=== PATIENT | male | born 1995 | race Caucasian/White ===

== ENCOUNTER 2016-07-12 12:19 | Emergency (ER) | payer BC ==
[~2016-07-12] VITALS: Ht 175.3 cm; Wt 68.0 kg
[2016-07-12 12:31] VITALS: TEMP 37; Ht 175.3 cm; Wt 68.0 kg
[2016-07-12] MEDS ORDERED: LACT1CAP3 PO (12:52)
[2016-07-12] MEDS ORDERED: IBUP-1050 PO (12:52)
[2016-07-12] MEDS ORDERED: LITH1TAB PO (12:52)
[2016-07-12] MEDS ORDERED: CLC/300 PO (12:52)
[2016-07-12] MEDS ORDERED: PSEU30TA20 PO (12:52)
[2016-07-12] MEDS ORDERED: PRED20TA PO (12:52)
[2016-07-12] MEDS ORDERED: SODIUM CHLORIDE 0.9% 1000ML 1,000 ML IV STA (12:59)
[2016-07-12] MEDS ORDERED: DEXAMETHASONE SOD INJ 10 MG/ML VIAL IV ONE (13:00)
[2016-07-12 13:27] LABS: HEMATOCRIT 41.4 % (42-52); MEAN CELL VOLUME 85.4 fL (80-100); MEAN CORPUSCULAR HEMOGLOBIN 29.9 pg (25-34); MEAN PLATELET VOLUME 10.7 fL (7.4-10.4); PLATELET COUNT 249 K/uL (130-400); RED BLOOD COUNT 4.85 M/uL (4.7-6.1); WHITE BLOOD COUNT 10.95 K/uL (4.8-10.8)
[2016-07-12 13:49] LABS: ALT/SGPT 26 U/L (12-78); BLOOD UREA NITROGEN 16 mg/dl (7-18); BUN/CREATININE RATIO 16.3 (10-20); CALCIUM 9.6 mg/dl (8.5-10.1); CARBON DIOXIDE 26 mmol/L (21-32); CHLORIDE 104 mmol/L (98-107); GLUCOSE 104 mg/dl (70-99); POTASSIUM 4.7 mmol/L (3.5-5.1); SODIUM 138 mmol/L (136-145)
[2016-07-12 13:52] LABS: ALKALINE PHOSPHATASE 57 U/L (45-117); AST/SGOT 17 U/L (15-37)
[2016-07-12 14:09] LABS: COMPLETE YES; LYMPHOCYTE % 2.7 %; NEUTROPHILS % 75.2 %; VARIANT LYM ABS # 1.94 K/uL; VARIANT LYMPHOCYTE % 17.7 %
--- NOTE | 2016-07-12 14:28 | EMERGENCY ROOM VISIT NOTE ---
History Report prepared by Gregoria: Sanam Alvarado Under the Supervision of: Dr. Alison Jordan M.D. First contact with patient: 12:56 Chief Complaint: ILLNESS Stated Complaint: THROAT SWELLING, FEVER, CONGESTION/MONO History of Present Illness The patient is a 21 year old male who presents to the Emergency Room with complaints of worsening illness that started one week ago. He is experiencing a fever, sinus congestion, and throat swelling. He states that swallowing is getting more difficult so he came into the ED. The patient was seen at [facility] 4 days ago and started on antibiotics for suspected tonsillitis. His strep test was negative. His symptoms did not get any better so he went back to [facility] yesterday. They tested him for mono and started him on steroids. The steroids helped relieve some of the external throat swelling but it was still difficult for him to swallow. He is on a steroid taper and took 3 tabs yesterday morning, 3 tabs last night, and 3 tabs this morning. Source of History: patient Onset: one week ago Position: other (generalized) Quality: other (illness) Timing: worsening Associated Symptoms: + fevers Note: sinus congestion, throat swelling Review of Systems See HPI for pertinent positives & negatives. A total of 10 systems reviewed and were otherwise negative. 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 Current/Historical Medications Scheduled Clindamycin HCl (Clindamycin HCl), 300 MG PO TID Ibuprofen (Advil), 200-600 MG PO Q4H Lactobacillus Rhamnosus (GG) (Culturelle), 1 CAP PO TID Helix Carbonate Ext Rel (Lithobid Ext Rel), 450 MG PO BID Prednisone (Prednisone), 20 MG PO DIRECTED Pseudoephedrine (Sudafed), 30 MG PO Q6 Allergies Coded Allergies: Penicillins (Verified Allergy, Intermediate, Hives, swelling, 07/12/16) Sulfa Antibiotics (Unverified Allergy, Unknown, HIVES, 07/12/16) Physical Exam Vital Signs Date Time Temp Pulse Resp B/P Pulse Ox O2 Delivery O2 Flow Rate FiO2 07/12/16 14:58 61 18 131/81 97 Room Air 07/12/16 12:31 37.0 101 20 126/74 98 Room Air Physical Exam Vital signs reviewed. General: Well-appearing male, in no significant distress. HEENT: No scleral icterus, PERRLA, neck supple. 3+ tonsillar hypertrophy, "hot potato" voice, tonsillar exudates bilaterally. TMs clear bilaterally. Atraumatic. Cardiovascular: Regular rate and rhythm, no extra sounds. Pulmonary: Clear to auscultation bilaterally, normal work of breathing. Abdomen: Soft, nontender, nondistended, positive bowel sounds. Musculoskeletal: Atraumatic, no peripheral edema. Neurologic: Patient awake alert and oriented x 3, full strength in all 4 extremities. Cranial nerves 2 through 12 grossly intact. Skin: Warm, dry, no rash Medical Decision & Procedures Laboratory Results 07/12/16 13:15 Red Blood Count 4.85, Mean Corpuscular Volume 85.4, Mean Corpuscular Hemoglobin 29.9, Mean Corpuscular Hemoglobin Concent 35.0, Mean Platelet Volume 10.7 07/12/16 13:15 Test 07/12/16 13:15 White Blood Count 10.95 K/uL (4.8-10.8) Red Blood Count 4.85 M/uL (4.7-6.1) Hemoglobin 14.5 g/dL (14.0-18.0) Hematocrit 41.4 % (42-52) Mean Corpuscular Volume 85.4 fL (80-100) Mean Corpuscular Hemoglobin 29.9 pg (25-34) Mean Corpuscular Hemoglobin Concent 35.0 g/dl (32-36) Platelet Count 249 K/uL (130-400) Mean Platelet Volume 10.7 fL (7.4-10.4) RDW Standard Deviation 40.7 fL (36.4-46.3) RDW Coefficient of Variation 13.0 % (11.5-14.5) Neutrophils % (Manual) 75.2 % Lymphocytes % (Manual) 2.7 % Variant Lymphocytes % (manual) 17.7 % Monocytes % (Manual) 4.4 % Neutrophils # (Manual) 8.23 K/uL (1.4-6.5) Total Absolute Neutrophils 8.23 K/uL (1.4-6.5) Lymphocytes # (Manual) 0.30 K/uL (1.2-3.4) Absolute Variant Lymphocytes 1.94 K/uL Total Absolute Lymphocytes 2.23 K/uL (1.2-3.4) Monocytes # (Manual) 0.48 K/uL (0.11-0.59) Red Blood Cell Morphology Unremarkable Anion Gap 8.0 mmol/L (3-11) Est Creatinine Clear Calc Drug Dose 110.5 ml/min Estimated GFR () 122.4 Estimated GFR (Non- 105.6 BUN/Creatinine Ratio 16.3 (10-20) Calcium Level 9.6 mg/dl (8.5-10.1) Total Bilirubin 0.4 mg/dl (0.2-1) Direct Bilirubin < 0.1 mg/dl (0-0.2) Aspartate Amino Transf (AST/SGOT) 17 U/L (15-37) Alanine Aminotransferase (ALT/SGPT) 26 U/L (12-78) Alkaline Phosphatase 57 U/L (45-117) Total Protein 8.1 gm/dl (6.4-8.2) Albumin 3.8 gm/dl (3.4-5.0) Monoscreen NEG (NEG) Laboratory results per my review. Medications Administered Medications (Trade) Dose Ordered Sig/Marielle Route Start Time Stop Time Status Last Admin Dose Admin Sodium Chloride (Nss 1000ml) 1,000 ml @ 999 mls/hr Q1H1M STAT IV 07/12/16 12:59 07/12/16 13:59 DC 07/12/16 13:31 999 MLS/HR Dexamethasone Sodium Phosphate (Decadron Inj) 10 mg NOW ONCE IV 07/12/16 13:00 07/12/16 13:01 DC 07/12/16 13:31 10 MG ED Course 1257: Past medical records reviewed. The patient was evaluated in room B5. A complete history and physical examination was performed. 1259: Ordered Sodium Chloride 1000 ml @ 999 mls/hr IV 1300: Ordered Decadron Inj 10 mg IV 1446: Upon reevaluation, the patient appeared to have improvement of his symptoms. I discussed findings with him. He verbalized agreement of the treatment plan. He was discharged home. Medical Decision The patient is a 21 year old male who presents to the Emergency Room with complaints of worsening illness that started one week ago. Differentials include viral syndrome, tonsillitis, streptococcal pharyngitis, mononucleosis, peritonsillar abscess, retropharyngeal abscess, otitis, pneumonia, influenza. This patient was evaluated and appeared to be in no significant distress. IV access was obtained and laboratory work was drawn. Patient was hydrated with normal saline solution. He is currently on clindamycin and prednisone for [facility]. A repeat Monospot was performed and is negative. EBV titers are pending. Strep swab is negative. Formal cultures are pending. The patient will continue his clindamycin as scheduled. He was given IV dexamethasone in the emergency department. He was discharged to continue his medications as prescribed and will follow-up with [facility] this week. He will return to the ER for worsening of symptoms or any medical concerns. Impression Primary Impression: Tonsillitis with exudate Scribe Attestation The scribe's documentation has been prepared under my direction and personally reviewed by me in its entirety. I confirm that the note above accurately reflects all work, treatment, procedures, and medical decision making performed by me. Departure Information Dispostion Home / Self-Care Referrals No Doctor, Assigned (PCP) Forms HOME CARE DOCUMENTATION FORM, IMPORTANT VISIT INFORMATION, WORK / SCHOOL INSTRUCTIONS Patient Instructions My [facility] Additional Instructions Diagnosis: Tonsillitis Continue clindamycin as prescribed. Continue prednisone as prescribed. Follow-up with [facility] in one week for reevaluation. Drink plenty of clear fluids. Return to the emergency department for worsening of symptoms or any medical concerns.
[2016-07-12 14:58] VITALS: BP 131/81; PULSE 61; O2SAT 97
[2016-07-16 15:17] LABS: EBV EARLY ANTIGEN AB <0.91 INDEX; EPSTEIN BARR VIR CAPSID IGG <0.91 INDEX
[2016-07-18] MEDS ORDERED: CEFD250S3 PO (08:02)
[2016-07-18] MEDS ORDERED: SALI0.6510 (08:02)
[2016-07-18] MEDS ORDERED: AFRIN (08:02)
[2016-07-18] MEDS ORDERED: PRED20TA PO (08:02)
== END 2016-07-12 14:58 | disposition home or self-care (01) ==
LOC: C.EDB 12:21
DX: J03.90 Acute tonsillitis, unspecified (principal); F31.9 Bipolar disorder, unspecified; Z79.899 Other long term (current) drug therapy; Z88.0 Allergy status to penicillin; Z88.2 Allergy status to sulfonamides; Z82.49 Family history of ischemic heart disease and other diseases of the circulatory system

== ENCOUNTER 2016-07-13 04:14 | Inpatient (IN) | payer BC ==
[2016-07-13] VITALS (11 sets, daily range): BP systolic 116–134; BP diastolic 62–90; PULSE 65–100; TEMP 36.8–37.4; O2SAT 94–99; Ht 175.3 cm; Wt 64.1 kg
[~2016-07-13] VITALS: Ht 175.3 cm; Wt 64.1 kg
[~2016-07-13 04:14] MED LIST: CLC/300 PO; IBUP-1050 PO; LACT1CAP3 PO; LITH1TAB PO; PRED20TA PO; PSEU30TA20 PO
[2016-07-13] MEDS ORDERED: KETOROLAC TROMETHAMINE 30 MG/ML VIAL IV STA (04:40)
[2016-07-13] MEDS ORDERED: SODIUM CHLORIDE 0.9% 1000ML 1,000 ML IV STA (04:40)
[2016-07-13] MEDS ORDERED: DEXAMETHASONE SOD INJ 10 MG/ML VIAL IV ONE (04:45)
[2016-07-13] MEDS ORDERED: CLINDAMYCIN 600 MG/54 ML D5W IV ONE (04:45)
--- NOTE | 2016-07-13 05:04 | EMERGENCY ROOM VISIT NOTE ---
History First contact with patient: 04:24 Chief Complaint: SORETHROAT Stated Complaint: SORE THOAT History of Present Illness The patient is a 21 year old male who presents to the Emergency Department by private vehicle for evaluation of his worsening sore throat. The patient had been seen in this facility yesterday and evaluated for possible mono. He was diagnosed with exudative tonsillitis. He was placed on steroids as well as clindamycin. He is taking his medication without relief. He reports worsening swelling to his throat. He is to the point that he can barely swallow his own spit. He reports this is what prompted his visit tonight. He reports low- grade fevers. He has been using ibuprofen with minimal relief of pain. He rates his current discomfort as a 7/10. He denies any posterior neck stiffness , nausea, vomiting, chest pain, palpitations, hematuria, or dysuria. He complains of mild headaches as well as some lightheadedness with changes in position. Review of Systems A complete 10-point Review of Systems was discussed with the patient, with pertinent positives and negatives listed in the History of Present Illness. All remaining Review of Systems questions can be considered negative unless otherwise specified. 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 Current/Historical Medications Scheduled Clindamycin HCl (Clindamycin HCl), 300 MG PO TID Ibuprofen (Advil), 200-600 MG PO Q4H Lactobacillus Rhamnosus (GG) (Culturelle), 1 CAP PO TID [place] Carbonate Ext Rel (Lithobid Ext Rel), 450 MG PO BID Prednisone (Prednisone), 20 MG PO DIRECTED Scheduled PRN Pseudoephedrine (Sudafed), 30 MG PO Q6 PRN for Nasal Congestion Allergies Coded Allergies: Penicillins (Verified Allergy, Intermediate, Hives, swelling, 07/13/16) Sulfa Antibiotics (Unverified Allergy, Unknown, HIVES, 07/13/16) Physical Exam Vital Signs Date Time Temp Pulse Resp B/P Pulse Ox O2 Delivery O2 Flow Rate FiO2 07/13/16 08:04 70 18 122/71 95 Room Air 07/13/16 07:46 94 Room Air 07/13/16 06:41 63 18 122/71 94 Room Air 07/13/16 05:01 98 Room Air 07/13/16 04:18 37.1 89 20 137/89 97 Room Air 07/13/16 04:18 94 Room Air Pain Rating (0-10): 7 Physical Exam VITAL SIGNS - Vital signs and nursing notes were reviewed. GENERAL - Well nourished, well developed 21-year-old male in no acute distress. Pt communicates well with provider and answers questions appropriately. SKIN - Without rash. HEAD - NC/AT with no obvious deformities. EYES - PERRL with EOMI bilaterally. Sclera without injection. Palpebral conjunctiva pink and moist. EARS - No deformities of external structures noted on gross examination bilaterally. No pain elicited with palpation of the tragus bilaterally. External auditory canals without discharge or otorrhea. Tympanic membranes pearly sierra without retraction or bulging. No fluid or purulent material visualized behind the TM. Handle of malleus, umbo, cone of light, pars tensa/ flaccid all easily visualized. NOSE - Midline and without cyanosis. No purulent drainage noted. Nasal mucosa without mucus discharge. MOUTH/OROPHARYNX - Without perioral cyanosis. Buccal mucosa pink and moist and without leukoplakia. Tongue midline with no palate deviation. Moderate tonsillar hypertrophy appreciated bilaterally. Nearly kissing tonsils. No trismus. Moderate erythema with whitish exudates noted bilaterally. Good dentition noted. Muffled voice. NECK - Neck with FROM. Supple to palpation. Moderate anterior cervical lymphadenopathy noted. No nuchal rigidity. LUNGS - Chest wall symmetric without accessory muscle use, intercostals retractions, or central cyanosis. Normal vesicular breath sounds CTA B/L. No wheezes, rales, or rhonchi appreciated. CARDIAC - RRR with S1/S2. No murmur, rubs, or gallops appreciated. ABDOMEN - Abdominal contour flat and without pulsations or visible masses. BS normoactive all four quadrants. No tenderness, palpable masses, hepatosplenomegaly, or ascites noted. Medical Decision & Procedures Laboratory Results 07/13/16 04:55 Red Blood Count 4.44, Mean Corpuscular Volume 85.6, Mean Corpuscular Hemoglobin 30.0, Mean Corpuscular Hemoglobin Concent 35.0, Mean Platelet Volume 10.4 07/13/16 04:55 Test 07/13/16 04:55 07/13/16 07:12 White Blood Count 11.02 K/uL (4.8-10.8) Red Blood Count 4.44 M/uL (4.7-6.1) Hemoglobin 13.3 g/dL (14.0-18.0) Hematocrit 38.0 % (42-52) Mean Corpuscular Volume 85.6 fL (80-100) Mean Corpuscular Hemoglobin 30.0 pg (25-34) Mean Corpuscular Hemoglobin Concent 35.0 g/dl (32-36) Platelet Count 245 K/uL (130-400) Mean Platelet Volume 10.4 fL (7.4-10.4) RDW Standard Deviation 41.2 fL (36.4-46.3) RDW Coefficient of Variation 13.2 % (11.5-14.5) Neutrophils % (Manual) 62.2 % Lymphocytes % (Manual) 9.0 % Variant Lymphocytes % (manual) 18.9 % Monocytes % (Manual) 9.9 % Neutrophils # (Manual) 6.85 K/uL (1.4-6.5) Total Absolute Neutrophils 6.85 K/uL (1.4-6.5) Lymphocytes # (Manual) 0.99 K/uL (1.2-3.4) Absolute Variant Lymphocytes 2.08 K/uL Total Absolute Lymphocytes 3.07 K/uL (1.2-3.4) Monocytes # (Manual) 1.09 K/uL (0.11-0.59) Red Blood Cell Morphology Unremarkable Erythrocyte Sedimentation Rate 32 mm/hr (0-14) Anion Gap 9.0 mmol/L (3-11) Est Creatinine Clear Calc Drug Dose 113.6 ml/min Estimated GFR () 125.4 Estimated GFR (Non- 108.2 BUN/Creatinine Ratio 17.0 (10-20) Calcium Level 9.0 mg/dl (8.5-10.1) Magnesium Level 2.4 mg/dl (1.8-2.4) Total Bilirubin 0.3 mg/dl (0.2-1) Aspartate Amino Transf (AST/SGOT) 11 U/L (15-37) Alanine Aminotransferase (ALT/SGPT) 25 U/L (12-78) Alkaline Phosphatase 54 U/L (45-117) C-Reactive Protein 1.83 mg/dl (0-0.29) Total Protein 7.5 gm/dl (6.4-8.2) Albumin 3.5 gm/dl (3.4-5.0) Globulin 4.0 gm/dl (2.5-4.0) Albumin/Globulin Ratio 0.9 (0.9-2) Lipase 83 U/L (73-393) Monoscreen NEG (NEG) Urine Color DK YELLOW Urine Appearance CLEAR (CLEAR) Urine pH 5.5 (4.5-7.5) Urine Specific [place] 1.037 (1.000-1.030) Urine Protein TRACE (NEG) Urine Glucose (UA) NEG (NEG) Urine Ketones 1+ (NEG) Urine Occult Blood NEG (NEG) Urine Nitrite NEG (NEG) Urine Bilirubin NEG (NEG) Urine Urobilinogen NEG (NEG) Urine Leukocyte Esterase NEG (NEG) Urine WBC (Auto) 1-5 /hpf (0-5) Urine RBC (Auto) 0-4 /hpf (0-4) Urine Hyaline Casts (Auto) 1-5 /lpf (0-5) Urine Epithelial Cells (Auto) >30 /lpf (0-5) Urine Bacteria (Auto) NEG (NEG) Medications Administered Medications (Trade) Dose Ordered Sig/Marielle Route Start Time Stop Time Status Last Admin Dose Admin Sodium Chloride (Nss 1000ml) 1,000 ml @ 999 mls/hr Q1H1M STAT IV 07/13/16 04:40 07/13/16 05:40 DC 07/13/16 04:57 999 MLS/HR Ketorolac Tromethamine (Toradol Inj) 30 mg NOW STAT IV 07/13/16 04:40 07/13/16 04:43 DC 07/13/16 04:57 30 MG Dexamethasone Sodium Phosphate 10 mg 10 mg NOW ONCE IV 07/13/16 04:45 07/13/16 04:46 DC 07/13/16 04:56 10 MG Clindamycin Phosphate/Dextrose (Cleocin Iv/ Dextrose Add-[place] 50ML) 54 ml @ 108 mls/hr NOW STAT IV 07/13/16 05:21 07/13/16 05:50 DC 07/13/16 05:27 108 MLS/HR Procedure The patient's pulse oximetry was monitored throughout the entire stay. Any abnormalities or aberrancies were addressed appropriately. ED Course Patient was seen and evaluated by myself. Previous emergency department visit note was reviewed. Labs were drawn, saline lock in place. The patient was hydrated with a 1000 mL normal saline bolus. He was treated with 30 mg Toradol , 10 mg Decadron, and 600 mg clindamycin intravenously. Laboratory results demonstrate a mild leukocytosis. The patient is not anemic. There are no significant electrolyte abnormalities otherwise. Monospot was found to be negative. The patient was monitored in the emergency department. He reports feeling somewhat better at this time. Regardless, the patient has persistent difficulty with swallowing secondary to pain. He is able to tolerate his own secretions at this point. The patient will be admitted to the [facility] program for continued evaluation and management. The patient was admitted in stable condition. Medical Decision Given the patient's presentation and exam findings, I did elect to perform the above-mentioned workup. The patient presents today with persistent bilateral exudative tonsillitis with near kissing tonsils. He does have a mild muffled voice. His exam is not consistent with a peritonsillar abscess or retropharyngeal abscess at this point. I do not feel that imaging studies are necessary at this point. Regardless, the patient has swelling to the point that he is having issues with swallowing which has resolved and mild dehydration per his urine. His symptoms did improve with Toradol and Decadron intravenously, however I do feel that the patient warrants inpatient management for IV fluid hydration and continued management. The patient was admitted to the hospitalist program in stable condition. In the evaluation and treatment of this patient, the following differential diagnoses were considered: Peritonsillar abscess, retropharyngeal abscess, mono , strep, meningitis, encephalitis, amongst others. Impression Primary Impression: Exudative tonsillitis Additional Impressions: Pain with swallowing Dehydration Departure Information Dispostion Admitted as an inpatient Condition [facility] (PCP) Patient Instructions My [facility] Problem Qualifiers
[2016-07-13 05:10] LABS: MEAN CELL VOLUME 85.6 fL (80-100); MEAN PLATELET VOLUME 10.4 fL (7.4-10.4); PLATELET COUNT 245 K/uL (130-400); RED BLOOD COUNT 4.44 M/uL (4.7-6.1); WHITE BLOOD COUNT 11.02 K/uL (4.8-10.8)
[2016-07-13] MEDS ORDERED: CLINDAMYCIN IV 600 MG in DEXTROSE 5% ADD-VANTAGE 50ML 50 ML IV STA (05:21)
[2016-07-13 05:29] LABS: COMPLETE YES; LYMPH ABS # 0.99 K/uL (1.2-3.4); NEUTROPHILS % 62.2 %; VARIANT LYM ABS # 2.08 K/uL; VARIANT LYMPHOCYTE % 18.9 %
[2016-07-13 05:30] LABS: CREATININE 0.98 mg/dl (0.60-1.40); MAGNESIUM 2.4 mg/dl (1.8-2.4); POTASSIUM 4.1 mmol/L (3.5-5.1)
[2016-07-13 05:33] LABS: ALB/GLOB RATIO 0.9 (0.9-2); C-REACTIVE PROTEIN 1.83 mg/dl (0-0.29)
[2016-07-13] MEDS: SODIUM CHLORIDE 0.9% 1000ML 1,000 ML IV SCH ×2 (07:36→20:22)
[2016-07-13 07:45] LABS: URINE APPEARANCE CLEAR (CLEAR); URINE BILIRUBIN NEG (NEG); URINE COLOR DK YELLOW; URINE EPITHELIAL CELL AUTO >30 /lpf (0-5); URINE NITRITE NEG (NEG); URINE PH 5.5 (4.5-7.5); URINE SPECIFIC GRAVITY 1.037 (1.000-1.030); UROBILINOGEN NEG (NEG); ZZUR CULT IF INDIC CLEAN CATCH NO
[2016-07-13] MEDS ORDERED: ONDANSETRON INJ 2 MG/ML 2 ML VIAL IV PRN (07:45)
[2016-07-13 07:46] LABS: MANUAL MICROSCOPIC REQUIRED? NO; REVIEW REQ? NO
[2016-07-13] MEDS ORDERED: RACEPINEPHRINE 2.25% NEBU SOLN 0.5 ML VIAL INH PRN (08:15)
--- NOTE | 2016-07-13 08:34 | HISTORY & PHYSICAL EXAMINATION ---
DATE OF ADMISSION: 07/13/2016 CHIEF COMPLAINT: Sore throat. 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 The patient has been seen in the Emergency Room yesterday for evaluation of sore throat. He was diagnosed with exudative tonsillitis and was placed on steroids as well as clindamycin. He was taking these medications and did not feel that it was making any difference in fact he had worsening swelling in his throat. All his symptoms in fact started on Friday when he first came to [facility] and then returned again on Friday and then he came to our Emergency Room. Today, he complains that he cannot even swallow his own spit. He reports that he had low grade fevers and he was using ibuprofen without relief. He has discomfort 01/06. He denies any neck stiffness, nausea, vomiting, palpitations. He complains of headache and some lightheadedness. REVIEW OF SYSTEMS: Negative except as above. Ten out of 14 systems were reviewed. PAST MEDICAL HISTORY: Significant for bipolar disorder. FAMILY HISTORY: Hypertension. SOCIAL HISTORY: Does not smoke and drinks 2 beers a week, does not use drugs. 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 Lives with his roommate. CURRENT MEDICATIONS: Clindamycin 300 mg p.o. t.i.d., ibuprofen 200-600 mg every 4 hours as needed, lactobacillus 1 capsule p.o. t.i.d., lithium carbonate extended release 450 mg p.o. b.i.d., prednisone 20 mg p.o. as directed and Sudafed 30 mg p.o. q. 6 hours p.r.n. nasal congestion. ALLERGIES: PENICILLIN AND SULFA ANTIBIOTICS. PHYSICAL EXAMINATION: VITAL SIGNS: Temperature 37.1, pulse 89, respirations 20, blood pressure 137/89, pulse ox 97 on room air. GENERAL: Not in acute distress, has a muffled voice. HEENT: Normocephalic, atraumatic. PERRLA, EOMI. NECK: No JVD. Trachea midline. There is a significant lymphadenopathy with tenderness present in submandibular lymph nodes and anterior cervical nodes. Throat has significant enlargement of his tonsils with quite white exudate on them and tonsils seem like to be red and inflamed. Tongue midline. No caren deviation. No trismus. Good dentition. Muffled voice. LUNGS: Clear to auscultation bilateral. No wheezes, no rhonchi. HEART: S1, S2, RRR. ABDOMEN: Soft, nontender; however, there is splenomegaly present. No ascites. PSYCHIATRIC: Mood and judgment are normal. LABORATORY DATA: White count of 11, hemoglobin of 13.3, MCV 85, platelets 245. ESR is 32. Chemistry basically normal except for C-reactive protein of 1.83. Urinalysis pending. [place] screen is negative. EBV is spending. His group A streptococcal screen from throat is pending. ASSESSMENT AND PLAN: This is a 21-year-old male who comes with sore throat. 1. Suspected acute bacterial tonsillitis. Admit patient to telemetry. Start patient on IV dexamethasone in addition to what has been given in the Emergency Room. Continue Dexamethasone with 6 mg every 6 hours. Continue clindamycin due to possible penicillin allergy reported by patient. Consult ENT. Start normal saline. If patient is hungry may use some sips of water. Toradol p.r.n. pain and fever. Deep venous thrombosis and gastrointestinal prophylaxis is not required. The patient is a full code. 2. History of bipolar disorder. Continue lithium carbonate externa extended release 450 mg p.o. b.i.d. Time spent on doing this admission 50 minutes. MTDD
--- NOTE | 2016-07-13 08:41 | DIAGNOSTIC IMAGING REPORT ---
CHEST ONE VIEW PORTABLE CLINICAL HISTORY: Pneumonia COMPARISON STUDY: No previous studies for comparison. FINDINGS: The cardiac and mediastinal contours are normal. There is no evidence of focal pulmonary consolidation. There is no evidence of failure. No pleural effusions are visualized.[ IMPRESSION: No active disease in the chest. Electronically signed by: Beau Arce M.D. 07/13/2016 8:38 AM Dictated Date/Time: 07/13/2016 8:38 AM
[2016-07-13] MEDS ORDERED: LACTOBACILLUS ACIDOPHILUS (FLORANEX) TAB PO SCH (09:00)
--- NOTE | 2016-07-13 10:47 | Medical Consult ---
Consultation Date of Consultation: Jul 13, 2016. Attending Physician: Oren Garcia MD History of Present Illness 21 yo male admitted to the medicine service for acute tonsillitis. Patient states that he started with a sore throat last Friday which worsened over the next few days. He went to health services at [facility] where they gave him PO steroids and clindamycin (penicillin allergy). He presented to the ED early this am as he felt he was not getting any better. CXR in the ED was normal. He is afebrile. He denies any history of recurrent tonsillitis or strep throat. Denies any alleviating or exacerbating factors at this point. He states he is able to tolerate fluids in small sips. Strep screen and mono screen negative. White count 11,000. No previous history of mononucleosis. No sick contacts. Past Medical/Surgical History Medical Problems: (1) Alcohol intoxication Status: Acute (2) Dehydration Status: Acute (3) Exudative tonsillitis Status: Acute (4) Pain with swallowing Status: Acute (5) Suicidal ideation Status: Acute (6) Tonsillitis with exudate Status: Acute Family History Hypertension Social History Smoking Status: Never Smoker Drug Use: none Marital Status: single Housing Status: lives with roommate Occupation Status: [employer] student Allergies Coded Allergies: Penicillins (Verified Allergy, Intermediate, Hives, swelling, 07/13/16) Sulfa Antibiotics (Unverified Allergy, Unknown, HIVES, 07/13/16) Current Inpatient Medications Current Inpatient Medications Medications (Trade) Dose Ordered Sig/Marielle Route Start Time Stop Time Status Last Admin Dose Admin Clindamycin Phosphate 600 mg/ Dextrose 54 ml @ 100 mls/hr Q8H IV 07/13/16 14:00 07/23/16 13:59 Dexamethasone Sodium Phosphate/ Syringe (Decadron Inj/ Syringe) 1.5 ml @ 1 mls/min Q6H IV 07/13/16 12:00 08/12/16 11:59 [place] Carbonate (Eskalith Cr Tab) 450 mg BID PO 07/13/16 09:00 08/12/16 08:59 Ketorolac Tromethamine 15 mg 15 mg Q6H PRN IV 07/13/16 07:45 07/18/16 07:44 Sodium Chloride (Nss 1000ml) 1,000 ml @ 75 mls/hr [id number] IV 07/13/16 07:36 08/12/16 07:35 07/13/16 07:36 75 MLS/HR Ondansetron HCl (Zofran Inj) 4 mg Q6H PRN IV 07/13/16 07:45 08/12/16 07:44 Racepinephrine (Raccemic Epinephrine 2.25% 0.5ML Neb) 0.5 ml Q8H PRN INH 07/13/16 08:15 08/12/16 08:14 Albuterol/ Ipratropium (Duoneb) 3 ml QIDR INH 07/13/16 12:00 08/12/16 11:59 Lactobacillus Acidophilus (Floranex Tab) 4 tab TID PO 07/13/16 09:00 08/12/16 08:59 Review of Systems Constitutional: + fatigue, + weakness Eyes: No diplopia, No discharge, No eye pain, No problem reported, No redness, No worsening of vision ENT: + problem reported (see HPI) Respiratory: No cough, No dyspnea at rest, No dyspnea on exertion, No hemoptysis, No problem reported, No shortness of breath, No sputum, No wheezing Cardiovascular: No PND, No chest pain, No claudication, No edema, No orthopnea , No palpitations, No problem reported Abdomen: No GI bleeding, No constipation, No diarrhea, No nausea, No pain, No problem reported, No vomiting Musculoskeletal: No calf pain, No joint pain, No muscle pain, No problem reported, No swelling Neurologic: No balance problems, No memory loss, No numbness/tingling, No paralysis, No problem reported, No vertigo, No weakness Integumentary: No bleeding, No color change, No itch, No new/changing skin lesions, No problem reported, No rash Allergic / Immunologic: No environmental allergies, No food allergies, No frequent infections, No hives, No pet sensitivities, No poor healing, No problem reported, No prolonged convalescence, No seasonal allergies Physical Exam Date Time Temp Pulse Resp B/P Pulse Ox O2 Delivery O2 Flow Rate FiO2 07/13/16 08:30 96 Room Air 07/13/16 08:30 36.8 100 18 124/90 96 Room Air 07/13/16 08:04 70 18 122/71 95 Room Air 07/13/16 07:46 94 Room Air 07/13/16 06:41 63 18 122/71 94 Room Air 07/13/16 05:01 98 Room Air 07/13/16 04:18 37.1 89 20 137/89 97 Room Air 07/13/16 04:18 94 Room Air General Appearance: WD/WN, no apparent distress Head: normocephalic, atraumatic Eyes: normal inspection, EOMI ENT: hearing grossly normal, + pertinent finding (Bilateral 4+ tonsils with exudate. No palatal edema. No uvular deviation. ) Neck: supple, + adenopathy present Respiratory/Chest: no respiratory distress, no accessory muscle use Cardiovascular: regular rate, rhythm, no JVD Neurologic/Psych: behavior management specialist II-XII nml as tested, normal mood/affect Skin: normal color, warm/dry Lymphatic: + cervical node abnormality Laboratory Results Last 24 Hours Test 07/13/16 04:55 07/13/16 07:12 White Blood Count 11.02 K/uL Red Blood Count 4.44 M/uL Hemoglobin 13.3 g/dL Hematocrit 38.0 % Mean Corpuscular Volume 85.6 fL Mean Corpuscular Hemoglobin 30.0 pg Mean Corpuscular Hemoglobin Concent 35.0 g/dl Platelet Count 245 K/uL Mean Platelet Volume 10.4 fL RDW Standard Deviation 41.2 fL RDW Coefficient of Variation 13.2 % Neutrophils % (Manual) 62.2 % Lymphocytes % (Manual) 9.0 % Variant Lymphocytes % (manual) 18.9 % Monocytes % (Manual) 9.9 % Neutrophils # (Manual) 6.85 K/uL Total Absolute Neutrophils 6.85 K/uL Lymphocytes # (Manual) 0.99 K/uL Absolute Variant Lymphocytes 2.08 K/uL Total Absolute Lymphocytes 3.07 K/uL Monocytes # (Manual) 1.09 K/uL Red Blood Cell Morphology Unremarkable Erythrocyte Sedimentation Rate 32 mm/hr Sodium Level 140 mmol/L Potassium Level 4.1 mmol/L Chloride Level 105 mmol/L Carbon Dioxide Level 26 mmol/L Anion Gap 9.0 mmol/L Blood Urea Nitrogen 17 mg/dl Creatinine 0.98 mg/dl Est Creatinine Clear Calc Drug Dose 113.6 ml/min Estimated GFR () 125.4 Estimated GFR (Non- 108.2 BUN/Creatinine Ratio 17.0 Random Glucose 107 mg/dl Calcium Level 9.0 mg/dl Magnesium Level 2.4 mg/dl Total Bilirubin 0.3 mg/dl Aspartate Amino Transf (AST/SGOT) 11 U/L Alanine Aminotransferase (ALT/SGPT) 25 U/L Alkaline Phosphatase 54 U/L C-Reactive Protein 1.83 mg/dl Total Protein 7.5 gm/dl Albumin 3.5 gm/dl Globulin 4.0 gm/dl Albumin/Globulin Ratio 0.9 Lipase 83 U/L Monoscreen NEG Urine Color DK YELLOW Urine Appearance CLEAR Urine pH 5.5 Urine Specific [place] 1.037 Urine Protein TRACE Urine Glucose (UA) NEG Urine Ketones 1+ Urine Occult Blood NEG Urine Nitrite NEG Urine Bilirubin NEG Urine Urobilinogen NEG Urine Leukocyte Esterase NEG Urine WBC (Auto) 1-5 /hpf Urine RBC (Auto) 0-4 /hpf Urine Hyaline Casts (Auto) 1-5 /lpf Urine Epithelial Cells (Auto) >30 /lpf Urine Bacteria (Auto) NEG Assessment & Plan 21 yo male with acute tonsillitis - recommend continued use of IV steroid and IV clindamycin - airway is stable, no distress - PO as tolerated - no surgical intervention indicated at this time - await EBV titers, due to fairly high false negative rate for mono spot - await culture results - patient should follow up in my office in 1 week, business card provided
[2016-07-13] MEDS: LITHIUM CARBONATE 450 MG TABCR PO SCH ×2 (11:00→20:19)
[2016-07-13] MEDS: LACTOBACILLUS ACIDOPHILUS (FLORANEX) TAB PO SCH ×3 (11:00→20:19)
[2016-07-13] MEDS: ALBUT/IPRATROP 3MG/0.5MG NEB 3 ML VIAL INH SCH ×3 (11:35→20:07)
[2016-07-13] MEDS: DEXAMETHASONE INJ 6 MG in SYRINGE 0 ML IV SCH ×3 (11:50→23:42)
[2016-07-13] MEDS: KETOROLAC TROMETHAMINE 15 MG/ML VIAL IV PRN ×3 (12:40→23:42)
[2016-07-13] MEDS: CLINDAMYCIN IV 600 MG in DEXTROSE 5% ADD-VANTAGE 50ML 50 ML IV SCH ×2 (13:48→21:50)
[2016-07-13] MEDS ORDERED: NURSING VERBAL MED ORDER ONE (17:45)
[2016-07-13] MEDS: ACETAMINOPHEN 325 MG TAB PO PRN (17:59)
[2016-07-14] VITALS (9 sets, daily range): BP systolic 106–134; BP diastolic 72–86; PULSE 57–87; TEMP 37–37.7; O2SAT 96–98
[2016-07-14] MEDS: ACETAMINOPHEN 325 MG TAB PO PRN ×3 (04:04→19:32)
[2016-07-14] MEDS: DEXAMETHASONE INJ 6 MG in SYRINGE 0 ML IV SCH ×5 (05:49→21:33)
[2016-07-14] MEDS: CLINDAMYCIN IV 600 MG in DEXTROSE 5% ADD-VANTAGE 50ML 50 ML IV SCH ×3 (05:49→21:33)
[2016-07-14 06:09] LABS: HEMATOCRIT 37.2 % (42-52); MEAN CELL VOLUME 86.9 fL (80-100); MEAN CORPUSCULAR HEMOGLOBIN 30.1 pg (25-34); MEAN CORPUSCULAR HGB CONC 34.7 g/dl (32-36); MEAN PLATELET VOLUME 11.1 fL (7.4-10.4); PLATELET COUNT 238 K/uL (130-400); RED BLOOD COUNT 4.28 M/uL (4.7-6.1); WHITE BLOOD COUNT 10.17 K/uL (4.8-10.8)
[2016-07-14 06:52] LABS: BUN/CREATININE RATIO 12.1 (10-20); CALCIUM 8.6 mg/dl (8.5-10.1); CREATININE 0.85 mg/dl (0.60-1.40); POTASSIUM 4.3 mmol/L (3.5-5.1)
[2016-07-14 06:56] LABS: COMPLETE YES; LYMPH ABS # 0.54 K/uL (1.2-3.4); LYMPHOCYTE % 5.3 %; META ABS # 0.18 K/uL (0-0); METAMYELOCYTE % 1.8 %; NEUTROPHILS % 57.5 %; VARIANT LYM ABS # 2.52 K/uL; VARIANT LYMPHOCYTE % 24.8 %
[2016-07-14] MEDS: ALBUT/IPRATROP 3MG/0.5MG NEB 3 ML VIAL INH SCH (06:58)
[2016-07-14] MEDS ORDERED: COUGH DROP (SUGAR FREE) LOZ 24 LOZ/1 BOX ONE (07:24)
[2016-07-14] MEDS: KETOROLAC TROMETHAMINE 15 MG/ML VIAL IV PRN ×3 (07:33→19:46)
[2016-07-14] MEDS: SODIUM CHLORIDE 0.9% 1000ML 1,000 ML IV SCH ×2 (08:30→23:34)
[2016-07-14] MEDS: LITHIUM CARBONATE 450 MG TABCR PO SCH ×2 (08:31→21:32)
[2016-07-14] MEDS: LACTOBACILLUS ACIDOPHILUS (FLORANEX) TAB PO SCH ×3 (08:31→21:33)
--- NOTE | 2016-07-14 10:51 | Ears,Nose,Throat Progress Note ---
Progress Note Date of Service Jul 14, 2016. Subjective Pt evaluation today including: conversation w/ patient, physical exam, chart review, lab review Patient admitted with acute tonsillitis. States he feels about the same as he did yesterday currently. Tolerating small sips of fluids, not much more in the way of PO. No airway issues. Currently on room air. Afebrile. White count essentially normal. Culture negative for strep. EBV titers pending. Objective Vital Signs Date Time Temp Pulse Resp B/P Pulse Ox O2 Delivery O2 Flow Rate FiO2 07/14/16 08:00 97 Room Air 07/14/16 07:49 57 18 97 Room Air 07/14/16 07:32 37.0 62 18 129/72 96 Room Air 07/14/16 04:23 37.4 65 20 106/73 98 Room Air 07/14/16 04:00 Room Air 07/13/16 23:59 Room Air 07/13/16 23:23 37.4 88 20 129/84 98 Room Air 07/13/16 20:07 76 18 98 Room Air 07/13/16 20:00 Room Air 07/13/16 19:45 37.2 80 20 116/62 97 Room Air 07/13/16 16:00 96 Room Air 07/13/16 15:57 37.3 93 22 134/82 99 Room Air 07/13/16 15:35 78 18 98 Room Air 07/13/16 12:00 96 Room Air 07/13/16 11:46 36.8 65 18 126/87 98 Room Air 07/13/16 11:35 72 18 99 Room Air Physical Exam General Appearance: WD/WN, no apparent distress Eyes: EOMI ENT: + pertinent finding (Bilateral 4+ tonsils with exudate. Uvula midline. No palatal edema. ) Neck: + adenopathy present Respiratory/Chest: no respiratory distress, no accessory muscle use Lymphatic: + pertinent finding (bilateral level II adenopathy) Laboratory Results Last 24 Hours Test 07/14/16 05:10 White Blood Count 10.17 K/uL Red Blood Count 4.28 M/uL Hemoglobin 12.9 g/dL Hematocrit 37.2 % Mean Corpuscular Volume 86.9 fL Mean Corpuscular Hemoglobin 30.1 pg Mean Corpuscular Hemoglobin Concent 34.7 g/dl Platelet Count 238 K/uL Mean Platelet Volume 11.1 fL RDW Standard Deviation 43.4 fL RDW Coefficient of Variation 13.5 % Neutrophils % (Manual) 57.5 % Lymphocytes % (Manual) 5.3 % Variant Lymphocytes % (manual) 24.8 % Monocytes % (Manual) 10.6 % Metamyelocytes % 1.8 % Neutrophils # (Manual) 5.85 K/uL Total Absolute Neutrophils 5.85 K/uL Lymphocytes # (Manual) 0.54 K/uL Absolute Variant Lymphocytes 2.52 K/uL Total Absolute Lymphocytes 3.06 K/uL Monocytes # (Manual) 1.08 K/uL Metamyelocytes # 0.18 K/uL Red Blood Cell Morphology Unremarkable Erythrocyte Sedimentation Rate 31 mm/hr Sodium Level 139 mmol/L Potassium Level 4.3 mmol/L Chloride Level 106 mmol/L Carbon Dioxide Level 24 mmol/L Anion Gap 9.0 mmol/L Blood Urea Nitrogen 10 mg/dl Creatinine 0.85 mg/dl Est Creatinine Clear Calc Drug Dose 128.1 ml/min Estimated GFR () 142.3 Estimated GFR (Non- 122.8 BUN/Creatinine Ratio 12.1 Random Glucose 109 mg/dl Calcium Level 8.6 mg/dl Assessment and Plan 21 yo male with acute tonsillitis - remains afebrile, white count normal - is about the same clinically today, no worse - suspect this is going to take some time for improvement - no concern clinically for peritonsillar abscess at this point (uvula midline, no palatal edema) - EBV titers pending, he clinically looks fairly classic for mono, but will wait and see what titers show - again, no surgical intervention indicated at this point, would not recommend tonsillectomy in this acutely infected state unless he had airway issue - as soon as patient is better able to tolerate PO, could be discharged from ENT standpoint. Would discharge on prednisone taper to prevent rebound edema and abx - patient can follow up in my office 1 week after he is discharged.
[2016-07-14] MEDS ORDERED: ALBUT/IPRATROP 3MG/0.5MG NEB 3 ML VIAL INH PRN (12:00)
[2016-07-14] MEDS: IPRATROPIUM BROMIDE/ALBUTEROL respimat INH INH SCH ×3 (13:37→21:31)
--- NOTE | 2016-07-14 13:49 | Progress Note ---
Subjective Subjective Date of Service: Jul 14, 2016. Pt evaluation today including: conversation w/ patient, physical exam, chart review, review of studies, conversation w/ design and sales consultant (marii), review of inpatient medication list Notes: pt complains of sore throat and having difficulty swallowing fluids Problem List Medical Problems: (1) Alcohol intoxication Status: Acute (2) Dehydration Status: Acute (3) Exudative tonsillitis Status: Acute (4) Pain with swallowing Status: Acute (5) Suicidal ideation Status: Acute (6) Tonsillitis with exudate Status: Acute Review of Systems Constitutional: No fever Eyes: No worsening of vision ENT: + sore throat, + trouble swallowing, No hearing loss Respiratory: No cough Cardiac: No chest pain Abdomen: No pain Musculoskeletal: No joint pain Male : No dysuria Neurologic: No memory loss Physical Exam Vital Signs Vital Signs Past 24 Hours: Date Time Temp Pulse Resp B/P Pulse Ox O2 Delivery O2 Flow Rate FiO2 07/14/16 12:00 97 Room Air 07/14/16 11:25 37.3 87 18 120/86 97 Room Air 07/14/16 08:00 97 Room Air 07/14/16 07:49 57 18 97 Room Air 07/14/16 07:32 37.0 62 18 129/72 96 Room Air 07/14/16 04:23 37.4 65 20 106/73 98 Room Air 07/14/16 04:00 Room Air 07/13/16 23:59 Room Air 07/13/16 23:23 37.4 88 20 129/84 98 Room Air 07/13/16 20:07 76 18 98 Room Air 07/13/16 20:00 Room Air 07/13/16 19:45 37.2 80 20 116/62 97 Room Air 07/13/16 16:00 96 Room Air 07/13/16 15:57 37.3 93 22 134/82 99 Room Air 07/13/16 15:35 78 18 98 Room Air Physical Exam: General Appearance: WD/WN, no apparent distress Eyes: bilateral eyes normal inspection ENT: + pharyngeal erythema, + tonsillar exudate, + muffled/hoarse voice Neck: supple, no JVD Respiratory/Chest: chest non-tender, normal breath sounds Cardiovascular: regular rate, rhythm, no gallop Abdomen: normal bowel sounds, soft, + splenomegaly Extremities: normal range of motion, normal inspection Neurologic/Psychiatric: alert Skin: normal color Medications Medications: Current Inpatient Medications Medications (Trade) Dose Ordered Sig/Marielle Route Start Time Stop Time Status Last Admin Dose Admin Clindamycin Phosphate/Dextrose (Cleocin Iv/ Dextrose Add-[place] 50ML) 54 ml @ 100 mls/hr Q8H IV 07/13/16 14:00 07/23/16 13:59 07/14/16 13:38 100 MLS/HR [place] Carbonate (Eskalith Cr Tab) 450 mg BID PO 07/13/16 09:00 08/12/16 08:59 07/14/16 08:31 450 MG Ketorolac Tromethamine 15 mg 15 mg Q6H PRN IV 07/13/16 07:45 07/18/16 07:44 07/14/16 13:34 15 MG Sodium Chloride (Nss 1000ml) 1,000 ml @ 75 mls/hr [id number] IV 07/13/16 07:36 08/12/16 07:35 07/14/16 08:30 75 MLS/HR Ondansetron HCl (Zofran Inj) 4 mg Q6H PRN IV 07/13/16 07:45 08/12/16 07:44 Racepinephrine (Raccemic Epinephrine 2.25% 0.5ML Neb) 0.5 ml Q8H PRN INH 07/13/16 08:15 08/12/16 08:14 Lactobacillus Acidophilus (Floranex Tab) 4 tab TID PO 07/13/16 09:00 08/12/16 08:59 07/14/16 13:38 4 TAB Acetaminophen 650 mg 650 mg Q4H PRN PO 07/13/16 18:00 08/12/16 17:59 07/14/16 11:00 650 MG Dexamethasone Sodium Phosphate/ Syringe (Decadron Inj/ Syringe) 1.5 ml @ 1 mls/min Q4H IV 07/14/16 10:00 08/13/16 09:59 07/14/16 13:34 1 MLS/MIN Albuterol/ Ipratropium (Duoneb) 3 ml QIDR PRN INH 07/14/16 12:00 08/13/16 11:59 Albuterol/ Ipratropium (Combivent Respimat Inh) 1 puffs QID INH 07/14/16 13:00 08/13/16 12:59 07/14/16 13:37 1 PUFFS Laboratory Data Labs: Last 24 Hours Test 07/14/16 05:10 White Blood Count 10.17 K/uL Red Blood Count 4.28 M/uL Hemoglobin 12.9 g/dL Hematocrit 37.2 % Mean Corpuscular Volume 86.9 fL Mean Corpuscular Hemoglobin 30.1 pg Mean Corpuscular Hemoglobin Concent 34.7 g/dl Platelet Count 238 K/uL Mean Platelet Volume 11.1 fL RDW Standard Deviation 43.4 fL RDW Coefficient of Variation 13.5 % Neutrophils % (Manual) 57.5 % Lymphocytes % (Manual) 5.3 % Variant Lymphocytes % (manual) 24.8 % Monocytes % (Manual) 10.6 % Metamyelocytes % 1.8 % Neutrophils # (Manual) 5.85 K/uL Total Absolute Neutrophils 5.85 K/uL Lymphocytes # (Manual) 0.54 K/uL Absolute Variant Lymphocytes 2.52 K/uL Total Absolute Lymphocytes 3.06 K/uL Monocytes # (Manual) 1.08 K/uL Metamyelocytes # 0.18 K/uL Red Blood Cell Morphology Unremarkable Erythrocyte Sedimentation Rate 31 mm/hr Sodium Level 139 mmol/L Potassium Level 4.3 mmol/L Chloride Level 106 mmol/L Carbon Dioxide Level 24 mmol/L Anion Gap 9.0 mmol/L Blood Urea Nitrogen 10 mg/dl Creatinine 0.85 mg/dl Est Creatinine Clear Calc Drug Dose 128.1 ml/min Estimated GFR () 142.3 Estimated GFR (Non- 122.8 BUN/Creatinine Ratio 12.1 Random Glucose 109 mg/dl Calcium Level 8.6 mg/dl Assessment and Plan This is a 21-year-old male who comes with sore throat. 1. Suspected acute bacterial tonsillitis. continue telemetry. continue IV dexamethasone with 6 mg every 4 hours. Continue IV clindamycin due to possible penicillin allergy reported by patient. appreciated ENT input, will need to follow up ENT 1 week. Continue IV normal saline. If patient is hungry may use some sips of water. IV Toradol p.r.n. pain and fever. Deep venous thrombosis and gastrointestinal prophylaxis is not required. The patient is a full code. 2. History of bipolar disorder. Continue lithium carbonate externa extended release 450 mg p.o. b.i.d. family updated
[2016-07-15] VITALS (8 sets, daily range): BP systolic 102–133; BP diastolic 63–86; PULSE 62–91; TEMP 36.5–37.2; O2SAT 92–98
[2016-07-15] MEDS: ACETAMINOPHEN 325 MG TAB PO PRN (00:25)
[2016-07-15] MEDS: DEXAMETHASONE INJ 6 MG in SYRINGE 0 ML IV SCH ×6 (01:57→21:43)
[2016-07-15] MEDS: KETOROLAC TROMETHAMINE 15 MG/ML VIAL IV PRN ×3 (01:58→21:44)
[2016-07-15] MEDS: CLINDAMYCIN IV 600 MG in DEXTROSE 5% ADD-VANTAGE 50ML 50 ML IV SCH (05:52)
[2016-07-15 08:16] LABS: HEMATOCRIT 41.5 % (42-52); MEAN CELL VOLUME 86.5 fL (80-100); MEAN CORPUSCULAR HGB CONC 34.7 g/dl (32-36); MEAN PLATELET VOLUME 11.2 fL (7.4-10.4); PLATELET COUNT 270 K/uL (130-400); WHITE BLOOD COUNT 12.17 K/uL (4.8-10.8)
[2016-07-15 08:43] LABS: BUN/CREATININE RATIO 20.4 (10-20); CALCIUM 8.9 mg/dl (8.5-10.1); CREATININE 0.81 mg/dl (0.60-1.40); POTASSIUM 4.3 mmol/L (3.5-5.1)
[2016-07-15 08:58] LABS: COMPLETE YES; LYMPH ABS # 0.97 K/uL (1.2-3.4); NEUTROPHILS % 63.6 %; VARIANT LYM ABS # 3.13 K/uL; VARIANT LYMPHOCYTE % 25.7 %
[2016-07-15] MEDS: IPRATROPIUM BROMIDE/ALBUTEROL respimat INH INH SCH ×4 (09:43→20:38)
[2016-07-15] MEDS: LITHIUM CARBONATE 450 MG TABCR PO SCH ×2 (09:43→20:39)
[2016-07-15] MEDS: LACTOBACILLUS ACIDOPHILUS (FLORANEX) TAB PO SCH ×3 (09:43→20:38)
--- NOTE | 2016-07-15 10:32 | Progress Note ---
Subjective Date of Service: Jul 15, 2016. Subjective Pt evaluation today including: conversation w/ patient Voiding: no voiding problems Problem List Medical Problems: (1) Alcohol intoxication Status: Acute (2) Dehydration Status: Acute (3) Exudative tonsillitis Status: Acute (4) Pain with swallowing Status: Acute (5) Suicidal ideation Status: Acute (6) Tonsillitis with exudate Status: Acute Review of Systems Constitutional: + see HPI Eyes: No eye pain ENT: No hearing loss Respiratory: No cough, No shortness of breath, No sputum Cardiac: No chest pain Abdomen: No nausea, No pain, No vomiting Musculoskeletal: No joint pain, No muscle pain Male : No dysuria Endo: No fatigue Objective Vital Signs Date Time Temp Pulse Resp B/P Pulse Ox O2 Delivery O2 Flow Rate FiO2 07/15/16 08:00 98 Room Air 07/15/16 07:11 36.8 65 20 122/77 98 Room Air 07/15/16 04:00 Room Air 07/15/16 03:35 37.1 65 16 119/73 92 Room Air 07/15/16 00:02 Room Air 07/15/16 00:00 37.2 86 16 129/86 94 Room Air 07/14/16 20:00 Room Air 07/14/16 19:36 37.7 80 21 134/81 97 Room Air 07/14/16 16:00 97 Room Air 07/14/16 15:26 37.1 64 22 117/81 97 Room Air 07/14/16 12:00 97 Room Air 07/14/16 11:25 37.3 87 18 120/86 97 Room Air Physical Exam General Appearance: + mild distress Eyes: normal inspection, PERRL, EOMI ENT: + pharyngeal erythema Neck: + adenopathy present Respiratory/Chest: chest non-tender, lungs clear, normal breath sounds, no respiratory distress, no accessory muscle use Cardiovascular: regular rate, rhythm, no edema, no gallop, no JVD Abdomen: normal bowel sounds, non tender, soft, no organomegaly, no pulsatile mass Extremities: normal range of motion, non-tender, normal inspection, no pedal edema, no calf tenderness Neurologic/Psychiatric: upholstery cleaner II-XII nml as tested, no motor/sensory deficits, alert, normal mood/affect, oriented x 3 Skin: normal color, warm/dry, no rash Laboratory Results Last 24 Hours Test 07/15/16 04:47 07/15/16 07:46 [place] Level 0.6 mMOL/L White Blood Count 12.17 K/uL Red Blood Count 4.80 M/uL Hemoglobin 14.4 g/dL Hematocrit 41.5 % Mean Corpuscular Volume 86.5 fL Mean Corpuscular Hemoglobin 30.0 pg Mean Corpuscular Hemoglobin Concent 34.7 g/dl Platelet Count 270 K/uL Mean Platelet Volume 11.2 fL RDW Standard Deviation 42.5 fL RDW Coefficient of Variation 13.4 % Neutrophils % (Manual) 63.6 % Lymphocytes % (Manual) 8.0 % Variant Lymphocytes % (manual) 25.7 % Monocytes % (Manual) 2.7 % Neutrophils # (Manual) 7.74 K/uL Total Absolute Neutrophils 7.74 K/uL Lymphocytes # (Manual) 0.97 K/uL Absolute Variant Lymphocytes 3.13 K/uL Total Absolute Lymphocytes 4.10 K/uL Monocytes # (Manual) 0.33 K/uL Sodium Level 138 mmol/L Potassium Level 4.3 mmol/L Chloride Level 104 mmol/L Carbon Dioxide Level 24 mmol/L Anion Gap 10.0 mmol/L Blood Urea Nitrogen 17 mg/dl Creatinine 0.81 mg/dl Est Creatinine Clear Calc Drug Dose 131.4 ml/min Estimated GFR () 145.2 Estimated GFR (Non- 125.3 BUN/Creatinine Ratio 20.4 Random Glucose 113 mg/dl Calcium Level 8.9 mg/dl Assessment and Plan Assessment/plan: 21 years old man with no significant PMHx, presented with severe sore throat. Pharyngitis Infectious mono serology is negative, Awaiting EBV titer GROUP A BETA STREP Culture is negative Reported PCN allergy as his Mom and grandfather gets hives, he actually never tried it before agreed to try cephalosporins will DC Clindamycin CT neck with contrast R/O abscess [id number] R/O underlying diabetes continue albuterol / Raccemic epinephrine continue pain management Bipolar disorder continue [place] , same dose
[2016-07-15 11:30] LABS: INR 1.1 (0.9-1.1); PROTHROMBIN TIME (PATIENT) 11.4 SECONDS (9.0-12.0)
--- NOTE | 2016-07-15 12:22 | DIAGNOSTIC IMAGING REPORT ---
CT SCAN OF THE NECK WITH IV CONTRAST CLINICAL HISTORY: Neck swelling. COMPARISON STUDY: No priors. TECHNIQUE: Following the IV administration of 94 cc of Optiray 320, CT scan of the soft tissues of the neck was performed from the skull base to the upper chest. Images are reviewed in the axial, sagittal, and coronal planes. IV contrast was administered without complication. CT DOSE: 490.10 mGy.cm FINDINGS: Pharynx: The tonsils appear enlarged and edematous and cause mild narrowing of the pharyngeal airway. No fluid collection is seen to indicate abscess. The pharyngeal soft tissues are otherwise normal in appearance. The epiglottis is normal. There is no evidence of mass lesion. The vocal cords are symmetric. The parapharyngeal fat is well maintained. The prevertebral/retropharyngeal soft tissues are within normal limits. Lymphadenopathy: There is bilateral cervical lymphadenopathy. The largest note is on the right at the level of the carotid bifurcation and measures 2.2 x 1.9 cm Thyroid: Normal in size and attenuation. Salivary glands: The parotid and submandibular glands are within normal limits. Brain parenchyma: The visualized brain parenchyma at the skull base is normal in appearance. Vascular structures: The carotid arteries and jugular veins are widely patent. Skeletal structures: Imaged portions of the calvarium at the skull base are within normal limits. The cervical spine appears intact. Orbits: The bony orbits are intact. Orbital contents are normal in appearance. Sinuses and mastoids: There is [id number] mucosal thickening within the maxillary antra and ethmoid sinuses. Mild mucosal thickening is seen in the right frontal sinus. The mastoid air cells are well pneumatized. Lung apices: Visualized apical lung parenchyma is clear. IMPRESSION: 1. The tonsils appear enlarged and edematous, and cause mild narrowing of the airway. Additionally, there is bilateral cervical lymphadenopathy. Correlate clinically for evidence of pharyngitis/tonsillitis or possibly infectious mononucleosis. 2. There is no evidence of tonsillar abscess as clinically queried. Electronically signed by: Marito Humphrey M.D. 07/15/2016 12:20 PM Dictated Date/Time: 07/15/2016 12:11 PM
--- NOTE | 2016-07-15 12:31 | Ears,Nose,Throat Progress Note ---
Progress Note Date of Service Jul 15, 2016. Subjective Pt evaluation today including: conversation w/ patient, conversation w/ family , physical exam, chart review, lab review Patient doing slightly better today. Tolerating PO, eating soup during my exam. EBV titers still pending. Primary service did obtain CT neck which I reviewed today. He has the known tonsillar hypertrophy and adenoid hypertrophy. There are no collections or abscesses. Objective Vital Signs Date Time Temp Pulse Resp B/P Pulse Ox O2 Delivery O2 Flow Rate FiO2 07/15/16 10:51 37.1 91 20 133/81 95 Room Air 07/15/16 08:00 98 Room Air 07/15/16 07:11 36.8 65 20 122/77 98 Room Air 07/15/16 04:00 Room Air 07/15/16 03:35 37.1 65 16 119/73 92 Room Air 07/15/16 00:02 Room Air 07/15/16 00:00 37.2 86 16 129/86 94 Room Air 07/14/16 20:00 Room Air 07/14/16 19:36 37.7 80 21 134/81 97 Room Air 07/14/16 16:00 97 Room Air 07/14/16 15:26 37.1 64 22 117/81 97 Room Air Physical Exam General Appearance: WD/WN, no apparent distress Eyes: EOMI ENT: + pertinent finding (Bilateral 4+ tonsils with exudate. ) Neck: supple, + adenopathy present Respiratory/Chest: no respiratory distress, no accessory muscle use Laboratory Results Last 24 Hours Test 07/15/16 04:47 07/15/16 07:46 07/15/16 11:03 [place] Level 0.6 mMOL/L White Blood Count 12.17 K/uL Red Blood Count 4.80 M/uL Hemoglobin 14.4 g/dL Hematocrit 41.5 % Mean Corpuscular Volume 86.5 fL Mean Corpuscular Hemoglobin 30.0 pg Mean Corpuscular Hemoglobin Concent 34.7 g/dl Platelet Count 270 K/uL Mean Platelet Volume 11.2 fL RDW Standard Deviation 42.5 fL RDW Coefficient of Variation 13.4 % Neutrophils % (Manual) 63.6 % Lymphocytes % (Manual) 8.0 % Variant Lymphocytes % (manual) 25.7 % Monocytes % (Manual) 2.7 % Neutrophils # (Manual) 7.74 K/uL Total Absolute Neutrophils 7.74 K/uL Lymphocytes # (Manual) 0.97 K/uL Absolute Variant Lymphocytes 3.13 K/uL Total Absolute Lymphocytes 4.10 K/uL Monocytes # (Manual) 0.33 K/uL Sodium Level 138 mmol/L Potassium Level 4.3 mmol/L Chloride Level 104 mmol/L Carbon Dioxide Level 24 mmol/L Anion Gap 10.0 mmol/L Blood Urea Nitrogen 17 mg/dl Creatinine 0.81 mg/dl Est Creatinine Clear Calc Drug Dose 131.4 ml/min Estimated GFR () 145.2 Estimated GFR (Non- 125.3 BUN/Creatinine Ratio 20.4 Random Glucose 113 mg/dl Calcium Level 8.9 mg/dl Prothrombin Time 11.4 SECONDS Prothromb Time International Ratio 1.1 Assessment and Plan 21 yo male with acute tonsillitis - EBV titers still pending - CT neck without any drainable collections - tolerating PO today - medical management per primary service - follow up in my office 1-2 weeks after discharge - call with questions
[2016-07-15] MEDS: ENOXAPARIN 40 MG/0.4 ML SYR SQ SCH (12:36)
[2016-07-15] MEDS: CEFTRIAXONE SOD INJ 2,000 MG in DEXTROSE 5% 50ML 50 ML IV SCH (12:36)
[2016-07-15] MEDS: SODIUM CHLORIDE 0.9% 1000ML 1,000 ML IV SCH (12:37)
[2016-07-15 17:09] LABS: EPSTEIN BARR VIR CAPSID IGG <0.91 INDEX
[2016-07-16] VITALS (7 sets, daily range): BP systolic 112–130; BP diastolic 64–91; PULSE 62–84; TEMP 36.5–37.1; O2SAT 93–97
[2016-07-16] MEDS: DEXAMETHASONE INJ 6 MG in SYRINGE 0 ML IV SCH ×6 (02:00→21:14)
[2016-07-16] MEDS: SODIUM CHLORIDE 0.9% 1000ML 1,000 ML IV SCH ×2 (02:00→15:43)
[2016-07-16 06:05] LABS: BUN/CREATININE RATIO 22.8 (10-20); CALCIUM 8.6 mg/dl (8.5-10.1); CREATININE 0.91 mg/dl (0.60-1.40); POTASSIUM 4.2 mmol/L (3.5-5.1)
[2016-07-16 06:07] LABS: ALB/GLOB RATIO 0.7 (0.9-2)
[2016-07-16 07:43] LABS: ESTIMATED AVERAGE GLUCOSE 108 mg/dl; HA1C FLAG Normal (Normal)
[2016-07-16] MEDS ORDERED: NURSING DECISION MEDICATION ORDER ONE (08:30)
[2016-07-16 09:51] LABS: MEAN CELL VOLUME 87.9 fL (80-100); MEAN CORPUSCULAR HEMOGLOBIN 30.3 pg (25-34); MEAN CORPUSCULAR HGB CONC 34.5 g/dl (32-36); MEAN PLATELET VOLUME 11.8 fL (7.4-10.4); PLATELET COUNT 300 K/uL (130-400); RED BLOOD COUNT 4.55 M/uL (4.7-6.1); WHITE BLOOD COUNT 12.33 K/uL (4.8-10.8)
[2016-07-16 10:15] LABS: COMPLETE YES; ECHINOCYTES 1+; GIANT PLATELETS 1+; LYMPH ABS # 1.79 K/uL (1.2-3.4); LYMPHOCYTE % 14.5 %; NEUTROPHILS % 61.9 %; VARIANT LYM ABS # 1.57 K/uL; VARIANT LYMPHOCYTE % 12.7 %
[2016-07-16] MEDS ORDERED: NURSING DECISION MEDICATION ORDER SCH ×2 (10:15)
[2016-07-16] MEDS: IPRATROPIUM BROMIDE/ALBUTEROL respimat INH INH SCH ×4 (10:17→20:43)
[2016-07-16] MEDS: LACTOBACILLUS ACIDOPHILUS (FLORANEX) TAB PO SCH ×3 (10:17→20:46)
[2016-07-16] MEDS: ENOXAPARIN 40 MG/0.4 ML SYR SQ SCH (10:18)
[2016-07-16] MEDS ORDERED: LITHIUM ORAL SOLN 300MG/5 ML UDP PO ONE (11:45)
[2016-07-16] MEDS: CEFTRIAXONE SOD INJ 2,000 MG in DEXTROSE 5% 50ML 50 ML IV SCH (13:23)
[2016-07-16] MEDS: KETOROLAC TROMETHAMINE 15 MG/ML VIAL IV PRN (14:44)
--- NOTE | 2016-07-16 16:50 | Progress Note ---
Subjective Date of Service: Jul 16, 2016. Subjective Pt evaluation today including: conversation w/ patient, physical exam, chart review, lab review, review of studies Problem List Medical Problems: (1) Alcohol intoxication Status: Acute (2) Dehydration Status: Acute (3) Exudative tonsillitis Status: Acute (4) Pain with swallowing Status: Acute (5) Suicidal ideation Status: Acute (6) Tonsillitis with exudate Status: Acute Review of Systems Constitutional: No chills, No fever Eyes: No worsening of vision ENT: + sore throat, + trouble swallowing, No hearing loss Respiratory: No cough, No shortness of breath Cardiac: No chest pain Abdomen: No nausea, No pain, No vomiting Musculoskeletal: No joint pain, No muscle pain Male : No dysuria, No incontinence Psychiatric: No anxiety, No depression symptoms Skin: No rash Medications Current Inpatient Medications Medications (Trade) Dose Ordered Sig/Marielle Route Start Time Stop Time Status Last Admin Dose Admin Ketorolac Tromethamine 15 mg 15 mg Q6H PRN IV 07/13/16 07:45 07/18/16 07:44 07/16/16 14:44 15 MG Sodium Chloride (Nss 1000ml) 1,000 ml @ 75 mls/hr [id number] IV 07/13/16 07:36 08/12/16 07:35 07/16/16 15:43 75 MLS/HR Ondansetron HCl (Zofran Inj) 4 mg Q6H PRN IV 07/13/16 07:45 08/12/16 07:44 Racepinephrine (Raccemic Epinephrine 2.25% 0.5ML Neb) 0.5 ml Q8H PRN INH 07/13/16 08:15 08/12/16 08:14 Lactobacillus Acidophilus (Floranex Tab) 4 tab TID PO 07/13/16 09:00 08/12/16 08:59 07/16/16 14:34 4 TAB Acetaminophen 650 mg 650 mg Q4H PRN PO 07/13/16 18:00 08/12/16 17:59 07/15/16 00:25 650 MG Dexamethasone Sodium Phosphate/ Syringe (Decadron Inj/ Syringe) 1.5 ml @ 1 mls/min Q4H IV 07/14/16 10:00 08/13/16 09:59 07/16/16 14:35 1 MLS/MIN Albuterol/ Ipratropium (Duoneb) 3 ml QIDR PRN INH 07/14/16 12:00 08/13/16 11:59 Albuterol/ Ipratropium 1 puffs 1 puffs QID INH 07/14/16 13:00 08/13/16 12:59 07/16/16 13:04 1 PUFFS Ceftriaxone Sodium/Dextrose (Rocephin Inj/D5 50ml) 70 ml @ 100 mls/hr Q24H IV 07/15/16 12:00 07/25/16 11:59 07/16/16 13:23 100 MLS/HR Enoxaparin Sodium (Lovenox Inj) 40 mg QAM SQ 07/15/16 10:32 08/14/16 10:31 07/16/16 10:18 40 MG Viking Carbonate (Viking Carbonate Soln) 300 mg TID PO 07/16/16 21:00 08/15/16 20:59 Objective Vital Signs Date Time Temp Pulse Resp B/P Pulse Ox O2 Delivery O2 Flow Rate FiO2 07/16/16 15:38 Room Air 07/16/16 15:31 36.6 62 16 128/87 96 Room Air 07/16/16 12:00 Room Air 07/16/16 12:00 36.8 76 20 114/78 95 Room Air 07/16/16 11:45 37.1 71 20 95 07/16/16 08:05 37.1 71 20 130/82 95 Room Air 07/16/16 08:00 Room Air 07/16/16 04:00 Room Air 07/16/16 03:32 37.0 64 22 126/91 97 Room Air 07/16/16 00:02 37.1 67 18 112/64 96 Room Air 07/16/16 00:00 Room Air 07/15/16 20:35 36.8 62 18 102/65 96 07/15/16 20:00 Room Air Physical Exam General Appearance: no apparent distress Eyes: normal inspection, PERRL, EOMI ENT: normal ENT inspection, hearing grossly normal, + pharyngeal erythema, + tonsillar exudate Neck: supple Respiratory/Chest: chest non-tender, lungs clear, normal breath sounds, no respiratory distress, no accessory muscle use Cardiovascular: regular rate, rhythm, no edema, no gallop, no JVD, no murmur Abdomen: normal bowel sounds, non tender, soft, no organomegaly, no pulsatile mass Extremities: normal range of motion, non-tender, normal inspection, no pedal edema, no calf tenderness Neurologic/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: 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, no motor/sensory deficits, alert, normal mood/affect, oriented x 3 Skin: normal color, warm/dry, no rash Laboratory Results Last 24 Hours Test 07/16/16 05:16 White Blood Count 12.33 K/uL Red Blood Count 4.55 M/uL Hemoglobin 13.8 g/dL Hematocrit 40.0 % Mean Corpuscular Volume 87.9 fL Mean Corpuscular Hemoglobin 30.3 pg Mean Corpuscular Hemoglobin Concent 34.5 g/dl Platelet Count 300 K/uL Mean Platelet Volume 11.8 fL RDW Standard Deviation 43.2 fL RDW Coefficient of Variation 13.5 % Neutrophils % (Manual) 61.9 % Lymphocytes % (Manual) 14.5 % Variant Lymphocytes % (manual) 12.7 % Monocytes % (Manual) 10.9 % Neutrophils # (Manual) 7.63 K/uL Total Absolute Neutrophils 7.63 K/uL Lymphocytes # (Manual) 1.79 K/uL Absolute Variant Lymphocytes 1.57 K/uL Total Absolute Lymphocytes 3.35 K/uL Monocytes # (Manual) 1.34 K/uL Giant Platelets 1+ Echinocytes 1+ Sodium Level 137 mmol/L Potassium Level 4.2 mmol/L Chloride Level 101 mmol/L Carbon Dioxide Level 26 mmol/L Anion Gap 10.0 mmol/L Blood Urea Nitrogen 21 mg/dl Creatinine 0.91 mg/dl Est Creatinine Clear Calc Drug Dose 116.3 ml/min Estimated GFR () 137.2 Estimated GFR (Non- 118.4 BUN/Creatinine Ratio 22.8 Random Glucose 118 mg/dl Estimated Average Glucose 108 mg/dl Hemoglobin A1c 5.4 % Calcium Level 8.6 mg/dl Total Bilirubin 0.3 mg/dl Aspartate Amino Transf (AST/SGOT) 10 U/L Alanine Aminotransferase (ALT/SGPT) 22 U/L Alkaline Phosphatase 44 U/L Total Protein 7.6 gm/dl Albumin 3.2 gm/dl Globulin 4.4 gm/dl Albumin/Globulin Ratio 0.7 Assessment and Plan Assessment/plan: 21 years old man with no significant PMHx, presented with severe sore throat. Pharyngitis Infectious mono serology is negative, Awaiting EBV titer GROUP A BETA STREP Culture is negative Reported PCN allergy as his Mom and grandfather gets hives, he actually never tried it before tolerated cephalosporins CT neck with contrast ruled out abscess but has very large tensiles HgbA1C was 5.4 ruled out diabetes continue albuterol / Raccemic epinephrine continue pain management if no improvement by tomorrow will discuss with him HIV RNA test for acute HIV Bipolar disorder continue Viking , change to short acting so it can be crushed check level
[2016-07-16] MEDS: LITHIUM ORAL SOLN 300MG/5 ML UDP PO SCH (20:45)
[2016-07-17] VITALS (8 sets, daily range): BP systolic 114–127; BP diastolic 73–82; PULSE 59–77; TEMP 36.4–36.9; O2SAT 92–96
[2016-07-17] MEDS: DEXAMETHASONE INJ 6 MG in SYRINGE 0 ML IV SCH ×6 (01:56→22:31)
[2016-07-17] MEDS: SODIUM CHLORIDE 0.9% 1000ML 1,000 ML IV SCH ×2 (05:39→18:29)
[2016-07-17] MEDS: KETOROLAC TROMETHAMINE 15 MG/ML VIAL IV PRN (06:02)
[2016-07-17 08:30] LABS: HEMATOCRIT 39.2 % (42-52); MEAN CELL VOLUME 84.3 fL (80-100); MEAN CORPUSCULAR HEMOGLOBIN 29.9 pg (25-34); MEAN CORPUSCULAR HGB CONC 35.5 g/dl (32-36); MEAN PLATELET VOLUME 10.1 fL (7.4-10.4); PLATELET COUNT 321 K/uL (130-400); RED BLOOD COUNT 4.65 M/uL (4.7-6.1); WHITE BLOOD COUNT 13.44 K/uL (4.8-10.8)
[2016-07-17] MEDS: LACTOBACILLUS ACIDOPHILUS (FLORANEX) TAB PO SCH ×3 (08:37→21:21)
[2016-07-17] MEDS: IPRATROPIUM BROMIDE/ALBUTEROL respimat INH INH SCH ×4 (08:38→21:20)
[2016-07-17] MEDS: LITHIUM ORAL SOLN 300MG/5 ML UDP PO SCH ×3 (08:39→21:20)
[2016-07-17] MEDS: ENOXAPARIN 40 MG/0.4 ML SYR SQ SCH (08:40)
[2016-07-17 09:01] LABS: COMPLETE YES; LYMPH ABS # 1.53 K/uL (1.2-3.4); LYMPHOCYTE % 11.4 %; NEUTROPHILS % 62.3 %; VARIANT LYM ABS # 2.35 K/uL; VARIANT LYMPHOCYTE % 17.5 %
[2016-07-17 09:02] LABS: ALT/SGPT 19 U/L (12-78); BLOOD UREA NITROGEN 19 mg/dl (7-18); BUN/CREATININE RATIO 29.4 (10-20); CALCIUM 9.1 mg/dl (8.5-10.1); CARBON DIOXIDE 21 mmol/L (21-32); CHLORIDE 105 mmol/L (98-107); CREATININE 0.66 mg/dl (0.60-1.40); GLUCOSE 113 mg/dl (70-99); POTASSIUM 4.5 mmol/L (3.5-5.1); SODIUM 137 mmol/L (136-145)
[2016-07-17 09:05] LABS: ALB/GLOB RATIO 0.7 (0.9-2); ALKALINE PHOSPHATASE 45 U/L (45-117); AST/SGOT 12 U/L (15-37)
[2016-07-17] MEDS: CEFTRIAXONE SOD INJ 2,000 MG in DEXTROSE 5% 50ML 50 ML IV SCH (11:36)
--- NOTE | 2016-07-17 14:54 | Medical Consult ---
Consultation Date of Consultation: Jul 17, 2016. Attending Physician: Oren Garcia MD Reason for Consultation: Tonsillitis History of Present Illness Patient is a 21 yo male who presented to the ED with severe sore throat for multiple days. He was previously seen in the ED 1 day prior to his current admission and was prescribed Steroids and Clindamycin for suspected bacterial tonsillitis. He took the doses that day and continued to have worsening of symptoms so he presented again for evaluation. He was having problems swallowing anything and was having subjective fevers at home. He states that he also had severe throat pain and some neck pain on admission which has now mostly resolved. Since admission, the patient did have a Bleck[place] screen which was negative and throat culture which was also negative for Group A strep. His EBV serology is now showing positive IgM with negative IgG Ab. His HIV screen was negative. WBC count on admission was 11.02. ESR was 32. CRP was 1.83. CT scan of the neck showed severely enlarged tonsils with mild narrowing of the airway, bilateral cervical lymphadenopathy, and no evidence of abscess. Thickening was also noted in the sinuses on CT. The patient is also stating that he is having severe nasal congestion. He has not been able to breathe through his nose at all yet. He is currently on IV Ceftriaxone. He states that he has mildly improved. Past Medical/Surgical History Medical Problems: (1) Alcohol intoxication Status: Acute (2) Dehydration Status: Acute (3) Exudative tonsillitis Status: Acute (4) Pain with swallowing Status: Acute (5) Suicidal ideation Status: Acute (6) Tonsillitis with exudate Status: Acute Medical Problems: (1) Acute infective tonsillitis (2) Bipolar disorder Family History Hypertension Noncontributory Social History Smoking Status: Never Smoker Drug Use: none Marital Status: single Housing Status: lives with roommate Occupation Status: [employer] Allergies Coded Allergies: Penicillins (Verified Allergy, Intermediate, FAMILY HX, PT NEVER HAD, 07/15) Sulfa Antibiotics (Verified Allergy, Unknown, HIVES, 07/15/16) Home Medications Reported Home Medications Medications Dose Route/Sig Max Daily Dose Days Date Category Culturelle (Lactobacillus Rhamnosus (GG)) 10 B Cell Cap 1 Cap PO TID 07/12/16 Reported Clindamycin HCl 300 Mg Cap 300 Mg PO TID 10 07/12/16 Reported Advil (Ibuprofen) 200 Mg Tab 200-600 Mg PO Q4H 07/12/16 Reported Prednisone 20 Mg Tab 20 Mg PO DIRECTED 07/12/16 Reported Sudafed (Pseudoephedrine HCl) 30 Mg Tab 30 Mg PO Q6 PRN 07/12/16 Reported Lithobid Ext Rel ([place] Carbonate) 450 Mg Tabcr 450 Mg PO BID 07/12/16 Reported Current Inpatient Medications Current Inpatient Medications Medications (Trade) Dose Ordered Sig/Marielle Route Start Time Stop Time Status Last Admin Dose Admin Ketorolac Tromethamine 15 mg 15 mg Q6H PRN IV 07/13/16 07:45 07/18/16 07:44 07/17/16 06:02 15 MG Sodium Chloride (Nss 1000ml) 1,000 ml @ 75 mls/hr [id number] IV 07/13/16 07:36 08/12/16 07:35 07/17/16 05:39 75 MLS/HR Ondansetron HCl (Zofran Inj) 4 mg Q6H PRN IV 07/13/16 07:45 08/12/16 07:44 Racepinephrine (Raccemic Epinephrine 2.25% 0.5ML Neb) 0.5 ml Q8H PRN INH 07/13/16 08:15 08/12/16 08:14 Lactobacillus Acidophilus (Floranex Tab) 4 tab TID PO 07/13/16 09:00 08/12/16 08:59 07/17/16 13:40 4 TAB Acetaminophen 650 mg 650 mg Q4H PRN PO 07/13/16 18:00 08/12/16 17:59 07/15/16 00:25 650 MG Dexamethasone Sodium Phosphate/ Syringe (Decadron Inj/ Syringe) 1.5 ml @ 1 mls/min Q4H IV 07/14/16 10:00 08/13/16 09:59 07/17/16 13:42 1 MLS/MIN Albuterol/ Ipratropium (Duoneb) 3 ml QIDR PRN INH 07/14/16 12:00 08/13/16 11:59 Albuterol/ Ipratropium 1 puffs 1 puffs QID INH 07/14/16 13:00 08/13/16 12:59 07/17/16 13:39 1 PUFFS Ceftriaxone Sodium/Dextrose (Rocephin Inj/D5 50ml) 70 ml @ 100 mls/hr Q24H IV 07/15/16 12:00 07/25/16 11:59 07/17/16 11:36 100 MLS/HR Enoxaparin Sodium (Lovenox Inj) 40 mg QAM SQ 07/15/16 10:32 08/14/16 10:31 07/17/16 08:40 40 MG [place] Carbonate ([place] Carbonate Soln) 300 mg TID PO 07/16/16 21:00 08/15/16 20:59 07/17/16 13:39 300 MG Review of Systems Constitutional: + chills, + fever (subjective), + sweats Eyes: No worsening of vision ENT: + nasal symptoms (congestion- severe), + sore throat (severe- now improved ), + trouble swallowing ( slightly improved) Respiratory: No shortness of breath Cardiovascular: No chest pain, No palpitations Abdomen: No diarrhea, No nausea, No pain, No vomiting Musculoskeletal: No joint pain, No muscle pain Genitourinary - Male: No dysuria, No hematuria Hematologic / Lymphatic: + swollen lymph nodes (neck) Integumentary: No itch, No new/changing skin lesions, No rash Physical Exam Date Time Temp Pulse Resp B/P Pulse Ox O2 Delivery O2 Flow Rate FiO2 07/17/16 12:02 36.5 67 20 127/79 96 Room Air 07/17/16 12:01 36.5 69 20 123/73 94 Room Air 07/17/16 12:00 Room Air 07/17/16 07:32 36.5 77 20 123/82 93 07/17/16 07:08 Room Air 07/17/16 04:45 36.6 59 12 118/75 95 Room Air 07/17/16 04:00 Room Air 07/17/16 00:10 Room Air 07/17/16 00:08 36.9 77 16 127/81 95 Room Air 07/16/16 20:18 36.5 84 20 115/76 93 Room Air 07/16/16 19:35 Room Air 07/16/16 15:38 Room Air 07/16/16 15:31 36.6 62 16 128/87 96 Room Air General Appearance: WD/WN, no apparent distress Head: normocephalic, atraumatic Eyes: normal inspection, sclerae normal ENT: hearing grossly normal, + pharyngeal erythema, + tonsillar exudate ( bilateral, severe), + muffled/hoarse voice, + pertinent finding (severely edematous bilateral tonsils) Neck: supple, + adenopathy present (bilateral anterior chain, mild tenderness) Respiratory/Chest: chest non-tender, lungs clear, normal breath sounds, no respiratory distress, no accessory muscle use Cardiovascular: regular rate, rhythm, no murmur Abdomen/GI: normal bowel sounds, non tender, soft Back: normal inspection Extremities/Musculoskelatal: normal inspection, normal range of motion Neurologic/Psych: alert, normal mood/affect Skin: normal color, warm/dry, no rash Lymphatic: + cervical node abnormality (anterior chain B/L edema) Laboratory Results CT SCAN OF THE NECK WITH IV CONTRAST CLINICAL HISTORY: Neck swelling. COMPARISON STUDY: No priors. TECHNIQUE: Following the IV administration of 94 cc of Optiray 320, CT scan of the soft tissues of the neck was performed from the skull base to the upper chest. Images are reviewed in the axial, sagittal, and coronal planes. IV contrast was administered without complication. CT DOSE: 490.10 mGy.cm FINDINGS: Pharynx: The tonsils appear enlarged and edematous and cause mild narrowing of the pharyngeal airway. No fluid collection is seen to indicate abscess. The pharyngeal soft tissues are otherwise normal in appearance. The epiglottis is normal. There is no evidence of mass lesion. The vocal cords are symmetric. The parapharyngeal fat is well maintained. The prevertebral/retropharyngeal soft tissues are within normal limits. Lymphadenopathy: There is bilateral cervical lymphadenopathy. The largest note is on the right at the level of the carotid bifurcation and measures 2.2 x 1.9 cm Thyroid: Normal in size and attenuation. Salivary glands: The parotid and submandibular glands are within normal limits. Brain parenchyma: The visualized brain parenchyma at the skull base is normal in appearance. Vascular structures: The carotid arteries and jugular veins are widely patent. Skeletal structures: Imaged portions of the calvarium at the skull base are within normal limits. The cervical spine appears intact. Orbits: The bony orbits are intact. Orbital contents are normal in appearance. Sinuses and mastoids: There is [id number] mucosal thickening within the maxillary antra and ethmoid sinuses. Mild mucosal thickening is seen in the right frontal sinus. The mastoid air cells are well pneumatized. Lung apices: Visualized apical lung parenchyma is clear. IMPRESSION: 1. The tonsils appear enlarged and edematous, and cause mild narrowing of the airway. Additionally, there is bilateral cervical lymphadenopathy. Correlate clinically for evidence of pharyngitis/tonsillitis or possibly infectious mononucleosis. 2. There is no evidence of tonsillar abscess as clinically queried. Item Value Date Time Group A Streptococcus Screen - Final Complete 07/13/16 0435 Throat SPECIMEN NEGATIVE FOR GROUP A BETA ST... Last 24 Hours Test 07/17/16 08:17 07/17/16 12:37 White Blood Count 13.44 K/uL Red Blood Count 4.65 M/uL Hemoglobin 13.9 g/dL Hematocrit 39.2 % Mean Corpuscular Volume 84.3 fL Mean Corpuscular Hemoglobin 29.9 pg Mean Corpuscular Hemoglobin Concent 35.5 g/dl Platelet Count 321 K/uL Mean Platelet Volume 10.1 fL RDW Standard Deviation 41.1 fL RDW Coefficient of Variation 13.4 % Neutrophils % (Manual) 62.3 % Lymphocytes % (Manual) 11.4 % Variant Lymphocytes % (manual) 17.5 % Monocytes % (Manual) 8.8 % Neutrophils # (Manual) 8.37 K/uL Total Absolute Neutrophils 8.37 K/uL Lymphocytes # (Manual) 1.53 K/uL Absolute Variant Lymphocytes 2.35 K/uL Total Absolute Lymphocytes 3.88 K/uL Monocytes # (Manual) 1.18 K/uL Red Blood Cell Morphology Unremarkable Sodium Level 137 mmol/L Potassium Level 4.5 mmol/L Chloride Level 105 mmol/L Carbon Dioxide Level 21 mmol/L Anion Gap 11.0 mmol/L Blood Urea Nitrogen 19 mg/dl Creatinine 0.66 mg/dl Est Creatinine Clear Calc Drug Dose 158.6 ml/min Estimated GFR () > 150.0 Estimated GFR (Non- 136.3 BUN/Creatinine Ratio 29.4 Random Glucose 113 mg/dl Calcium Level 9.1 mg/dl Total Bilirubin 0.3 mg/dl Aspartate Amino Transf (AST/SGOT) 12 U/L Alanine Aminotransferase (ALT/SGPT) 19 U/L Alkaline Phosphatase 45 U/L Total Protein 7.3 gm/dl Albumin 2.9 gm/dl Globulin 4.4 gm/dl Albumin/Globulin Ratio 0.7 [place] Level < 0.2 mMOL/L HIV (1&2) Ab and P24 Ag, 4th Gener NEG Assessment & Plan Patient with severe bilateral exudative tonsillitis, anterior cervical chain lymphadenopathy, and positive EBV IgM serology consistent with Infectious Mononucleosis. The patient has also had severe nasal congestion which may or may not be related to his [place]. He is currently on IV Ceftriaxone. From a Mononucleosis standpoint, the patient does not need any further antibiotic therapy. If bacterial sinusitis is suspected, would consider continued antibiotic therapy with PO Cefdinir to complete 7 days (due to patient PCN allergy). Also recommend continuation of steroid therapy and symptomatic treatment. Otherwise, patient is OK for D/C from ID perspective. Thank you PROVIDER ADDENDUM: Pt. examined and reviewed with Ms. Umanzor. Agree with above assessment.
[2016-07-17] MEDS ORDERED: SODIUM CHLORIDE 0.65% NA SOLN 45 ML (OCEAN) ONE (15:51)
[2016-07-17] MEDS ORDERED: NURSING DECISION MEDICATION ORDER SCH (16:00)
[2016-07-17] MEDS ORDERED: SODIUM CHLORIDE 0.65% NA SOLN 45 ML (OCEAN) PRN (16:00)
--- NOTE | 2016-07-17 17:40 | Progress Note ---
Subjective Date of Service: Jul 17, 2016. Subjective Pt evaluation today including: conversation w/ patient, physical exam, chart review, lab review, review of studies, conversation w/ health and wellness sales consultant Problem List Medical Problems: (1) Alcohol intoxication Status: Acute (2) Dehydration Status: Acute (3) Exudative tonsillitis Status: Acute (4) Pain with swallowing Status: Acute (5) Suicidal ideation Status: Acute (6) Tonsillitis with exudate Status: Acute Review of Systems Constitutional: No chills, No fever Eyes: No eye pain, No worsening of vision ENT: + sore throat, No hearing loss, No unusual epistaxis Respiratory: No cough, No shortness of breath, No sputum, No wheezing Cardiac: No chest pain, No edema, No orthopnea Abdomen: No diarrhea, No nausea, No pain, No vomiting Musculoskeletal: No joint pain Male : No dysuria, No urinary frequency Neurologic: No memory loss, No numbness/tingling, No paralysis, No weakness Psychiatric: No anxiety, No depression symptoms, No insomnia Heme: No abnormal bleeding/bruising Endo: No fatigue Skin: No rash Medications Current Inpatient Medications Medications (Trade) Dose Ordered Sig/Marielle Route Start Time Stop Time Status Last Admin Dose Admin Ketorolac Tromethamine 15 mg 15 mg Q6H PRN IV 07/13/16 07:45 07/18/16 07:44 07/17/16 06:02 15 MG Sodium Chloride (Nss 1000ml) 1,000 ml @ 75 mls/hr [id number] IV 07/13/16 07:36 08/12/16 07:35 07/17/16 05:39 75 MLS/HR Ondansetron HCl (Zofran Inj) 4 mg Q6H PRN IV 07/13/16 07:45 08/12/16 07:44 Racepinephrine (Raccemic Epinephrine 2.25% 0.5ML Neb) 0.5 ml Q8H PRN INH 07/13/16 08:15 08/12/16 08:14 Lactobacillus Acidophilus (Floranex Tab) 4 tab TID PO 07/13/16 09:00 08/12/16 08:59 07/17/16 13:40 4 TAB Acetaminophen 650 mg 650 mg Q4H PRN PO 07/13/16 18:00 08/12/16 17:59 07/15/16 00:25 650 MG Dexamethasone Sodium Phosphate/ Syringe (Decadron Inj/ Syringe) 1.5 ml @ 1 mls/min Q4H IV 07/14/16 10:00 08/13/16 09:59 07/17/16 13:42 1 MLS/MIN Albuterol/ Ipratropium (Duoneb) 3 ml QIDR PRN INH 07/14/16 12:00 08/13/16 11:59 Albuterol/ Ipratropium 1 puffs 1 puffs QID INH 07/14/16 13:00 08/13/16 12:59 07/17/16 13:39 1 PUFFS Ceftriaxone Sodium/Dextrose (Rocephin Inj/D5 50ml) 70 ml @ 100 mls/hr Q24H IV 07/15/16 12:00 07/25/16 11:59 07/17/16 11:36 100 MLS/HR Enoxaparin Sodium (Lovenox Inj) 40 mg QAM SQ 07/15/16 10:32 08/14/16 10:31 07/17/16 08:40 40 MG [place] Carbonate ([place] Carbonate Soln) 300 mg TID PO 07/16/16 21:00 08/15/16 20:59 07/17/16 13:39 300 MG Sodium Chloride ([place] Nasal [place]) 1 sprays PRN PRN NA 07/17/16 16:00 08/16/16 15:59 Objective Vital Signs Date Time Temp Pulse Resp B/P Pulse Ox O2 Delivery O2 Flow Rate FiO2 07/17/16 15:56 36.4 69 18 116/74 94 Room Air 07/17/16 12:02 36.5 67 20 127/79 96 Room Air 07/17/16 12:01 36.5 69 20 123/73 94 Room Air 07/17/16 12:00 Room Air 07/17/16 07:32 36.5 77 20 123/82 93 07/17/16 07:08 Room Air 07/17/16 04:45 36.6 59 12 118/75 95 Room Air 07/17/16 04:00 Room Air 07/17/16 00:10 Room Air 07/17/16 00:08 36.9 77 16 127/81 95 Room Air 07/16/16 20:18 36.5 84 20 115/76 93 Room Air 07/16/16 19:35 Room Air Physical Exam General Appearance: no apparent distress Eyes: normal inspection, PERRL, EOMI ENT: normal ENT inspection, + tonsillar exudate Neck: supple, + adenopathy present Respiratory/Chest: chest non-tender, lungs clear, normal breath sounds, no respiratory distress, no accessory muscle use Cardiovascular: regular rate, rhythm, no edema, no gallop, no JVD, no murmur Abdomen: normal bowel sounds, non tender, soft, no organomegaly, no pulsatile mass Extremities: normal range of motion, non-tender, normal inspection, no pedal edema, no calf tenderness Neurologic/Psychiatric: public 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 as tested, no motor/sensory deficits, alert, normal mood/affect, oriented x 3 Skin: normal color, warm/dry, no rash Laboratory Results Last 24 Hours Test 07/17/16 08:17 07/17/16 12:37 White Blood Count 13.44 K/uL Red Blood Count 4.65 M/uL Hemoglobin 13.9 g/dL Hematocrit 39.2 % Mean Corpuscular Volume 84.3 fL Mean Corpuscular Hemoglobin 29.9 pg Mean Corpuscular Hemoglobin Concent 35.5 g/dl Platelet Count 321 K/uL Mean Platelet Volume 10.1 fL RDW Standard Deviation 41.1 fL RDW Coefficient of Variation 13.4 % Neutrophils % (Manual) 62.3 % Lymphocytes % (Manual) 11.4 % Variant Lymphocytes % (manual) 17.5 % Monocytes % (Manual) 8.8 % Neutrophils # (Manual) 8.37 K/uL Total Absolute Neutrophils 8.37 K/uL Lymphocytes # (Manual) 1.53 K/uL Absolute Variant Lymphocytes 2.35 K/uL Total Absolute Lymphocytes 3.88 K/uL Monocytes # (Manual) 1.18 K/uL Red Blood Cell Morphology Unremarkable Sodium Level 137 mmol/L Potassium Level 4.5 mmol/L Chloride Level 105 mmol/L Carbon Dioxide Level 21 mmol/L Anion Gap 11.0 mmol/L Blood Urea Nitrogen 19 mg/dl Creatinine 0.66 mg/dl Est Creatinine Clear Calc Drug Dose 158.6 ml/min Estimated GFR () > 150.0 Estimated GFR (Non- 136.3 BUN/Creatinine Ratio 29.4 Random Glucose 113 mg/dl Calcium Level 9.1 mg/dl Total Bilirubin 0.3 mg/dl Aspartate Amino Transf (AST/SGOT) 12 U/L Alanine Aminotransferase (ALT/SGPT) 19 U/L Alkaline Phosphatase 45 U/L Total Protein 7.3 gm/dl Albumin 2.9 gm/dl Globulin 4.4 gm/dl Albumin/Globulin Ratio 0.7 [place] Level < 0.2 mMOL/L HIV (1&2) Ab and P24 Ag, 4th Gener NEG Assessment and Plan Assessment/plan: 21 years old man with no significant PMHx, presented with severe sore throat. Pharyngitis/severe bilateral exudative tonsillitis, anterior cervical chain lymphadenopathy Infectious mono serology is negative, which can be false negative positive EBV IgM serology consistent with Infectious Mononucleosis. GROUP A BETA STREP Culture is negative Reported PCN allergy as his Mom and grandfather gets hives, he actually never tried it before tolerated cephalosporins CT neck with contrast ruled out abscess but has very large tensiles HgbA1C was 5.4 ruled out diabetes continue albuterol / Raccemic epinephrine continue pain management HIV RNA test for acute HIV, verbal consent obtained ID consult appreciated Bipolar disorder continue [place] , change to short acting so it can be crushed repeat level DVT prophylaxis
[2016-07-17] MEDS ORDERED: OXYMETAZOLINE HCL 0.05% NA SPR 15 ML BTL PRN (20:45)
[2016-07-18] MEDS: DEXAMETHASONE INJ 6 MG in SYRINGE 0 ML IV SCH ×2 (01:39→06:00)
[2016-07-18 04:11] VITALS: BP 113/67; PULSE 59; TEMP 36.2; O2SAT 97
[2016-07-18 07:05] LABS: HEMATOCRIT 41.3 % (42-52); MEAN CELL VOLUME 85.7 fL (80-100); MEAN CORPUSCULAR HEMOGLOBIN 29.9 pg (25-34); MEAN CORPUSCULAR HGB CONC 34.9 g/dl (32-36); MEAN PLATELET VOLUME 10.8 fL (7.4-10.4); PLATELET COUNT 336 K/uL (130-400); RED BLOOD COUNT 4.82 M/uL (4.7-6.1); WHITE BLOOD COUNT 11.72 K/uL (4.8-10.8)
[2016-07-18 07:20] LABS: CREATININE 0.74 mg/dl (0.60-1.40)
[2016-07-18 07:35] VITALS: BP 122/80; PULSE 56; TEMP 36.8; O2SAT 99
[2016-07-18] MEDS: SODIUM CHLORIDE 0.9% 1000ML 1,000 ML IV SCH (07:40)
[2016-07-18] MEDS ORDERED: CEFD250S3 PO (08:02)
[2016-07-18] MEDS ORDERED: SALI0.6510 (08:02)
[2016-07-18] MEDS ORDERED: PRED20TA PO (08:02)
[2016-07-18] MEDS ORDERED: AFRIN (08:02)
--- NOTE | 2016-07-18 08:10 | Discharge Instructions ---
Discharge Instructions Admission Admission Date: Jul 13, 2016 at 07:39 Admission Diagnosis: Acute Infective Tonsillitis. Discharge Care Plan - Problem: Medical Problems: (1) Dehydration (2) Exudative tonsillitis (3) Pain with swallowing Care Plan - Goal(s): Decrease discomfort Care Plan - Instructions: Activity Recommendations: no limitations Recommended Home Diet: Full Liquid, Regular VTE Core Measure Inpt VTE Proph given/why not?: Enoxaparin (Lovenox)SQ, Treatment not indicated Laboratory Results Test Results: Hemoglobin A1c Test 07/16/16 05:16 Range/Units Estimated Average Glucose 108 mg/dl Hemoglobin A1c 5.4 4.5-5.6 % Disha Jennings Recommendations: Call your doctor if: * Temperature above 101 degrees * Pain not relieved by pain medicine ordered * There is increased drainage or redness from any incision * You have any unanswered questions or concerns. Your Doctors Instructions noted above were prepared by provider Callum Ayala.
[2016-07-18] MEDS: IPRATROPIUM BROMIDE/ALBUTEROL respimat INH INH SCH (08:48)
[2016-07-18] MEDS: LACTOBACILLUS ACIDOPHILUS (FLORANEX) TAB PO SCH (08:49)
[2016-07-18] MEDS: LITHIUM ORAL SOLN 300MG/5 ML UDP PO SCH (08:49)
[2016-07-18 09:07] VITALS: BP 122/80; PULSE 56; TEMP 36.8; O2SAT 99
--- NOTE | 2016-07-18 09:42 | Discharge Summary ---
Discharge Summary Admission Date: Jul 13, 2016 at 07:39 Discharge Date: Jul 18, 2016 Discharge Disposition: Home Problems/Secondary Diagnoses: Pharyngitis/severe bilateral exudative tonsillitis, anterior cervical chain lymphadenopathy Infectious mono secondary to EBV Reported PCN allergy by family history but tolerated cephalosporins pending HIV RNA test for acute HIV, verbal consent obtained, instructed to personally follow up on results Bipolar disorder Medication Reconciliation New Medications: Cefdinir (Omnicef) 250 Mg/5 Ml Ev 5 ML PO BID for 4 Days, #40 ML Oxymetazoline HCl (Afrin Nasal [place]) 75 Sprays/15 Ml [place] 1 SPRAYS NA BID PRN for Congestion for 3 Days, #1 SPRAY do not use more than 3 days Saline ([place] Nasal [place]) 0.65 % Spr 2 SPRAYS NA QID PRN for DRYNESS for 30 Days, #1 Changed Medications: Prednisone (Prednisone) 20 Mg Tab 20 MG PO DIRECTED for 6 Days, #7 TAB (Medication details modified) take 2 tablets by mouth X 2 days then one tablet by mouth X 2 days then 1/2 tablet by mouth X 2 days Continued Medications: Ibuprofen (Advil) 200 Mg Tab 200-600 MG PO Q4H, TAB [place] Carbonate Ext Rel (Lithobid Ext Rel) 450 Mg Tabcr 450 MG PO BID, TAB Pseudoephedrine (Sudafed) 30 Mg Tab 30 MG PO Q6 PRN for Nasal Congestion, TAB Discontinued Medications: Clindamycin HCl (Clindamycin HCl) 300 Mg Cap 300 MG PO TID for 10 Days, #30 CAP Lactobacillus Rhamnosus (GG) (Culturelle) 10 B Cell Cap 1 CAP PO TID Referrals At Discharge Follow up Referrals: Infectious Disease - Within 1-2 Weeks with Michelle Umanzor, [facility] Discharge Exam Review of Systems: Constitutional: No chills, No fever Eyes: No worsening of vision ENT: + trouble swallowing, No hearing loss Respiratory: No cough, No dyspnea at rest, No dyspnea on exertion, No shortness of breath, No sputum Cardiovascular: No chest pain, No orthopnea Abdomen: No constipation, No diarrhea, No nausea, No pain Musculoskeletal: No joint pain, No muscle pain Genitourinary - Female: No dysuria Genitourinary - Male: No dysuria, No hematuria Neurologic: No memory loss, No numbness/tingling, No paralysis, No weakness Psychiatric: No depression symptoms Endocrine: No fatigue Hematologic / Lymphatic: No abnormal bleeding/bruising Integumentary: No rash Physical Exam: General Appearance: no apparent distress Eyes: normal inspection, PERRL, EOMI ENT: normal ENT inspection, + tonsillar exudate (significantly improved, and size of tonsils is much smaller, Airway is widely open) Neck: supple, + adenopathy present Respiratory/Chest: chest non-tender, lungs clear, normal breath sounds, no respiratory distress, no accessory muscle use Cardiovascular: regular rate, rhythm, no edema, no gallop, no JVD, no murmur , normal peripheral pulses Abdomen / GI: normal bowel sounds, non tender, soft, no organomegaly, no pulsatile mass, normal rectal exam Extremities: normal inspection, no calf tenderness, normal capillary refill , no pedal edema, normal range of motion Neurologic/Psychiatric: blanket weaver II-XII nml as tested, no motor/sensory deficits , alert, normal mood/affect, normal reflexes Skin: normal color, warm/dry, no rash Hospital Course Assessment/plan: 21 years old man with no significant PMHx, presented with severe sore throat. GROUP A BETA STREP Culture was negative he was found to have Pharyngitis/severe bilateral exudative tonsillitis, anterior cervical chain lymphadenopathy Infectious mono serology is negative, which turned out to be false negative as he had positive EBV IgM serology consistent with Infectious Mononucleosis. Reported PCN allergy as his Mom and grandfather gets hives, he actually never tried it before initially started on clindamycin but then switched to cephalosporins and tolerated it well CT neck with contrast ruled out abscess but has very large tensiles HgbA1C was 5.4 ruled out diabetes started albuterol / Raccemic epinephrine and improved continued Vanc[place] but changed to short acting so it can be crushed HIV RNA test for acute HIV, verbal consent obtained, rapid screening came back negative and he was instructed to follow up on HIV RNA results ID consult appreciated, who cleared him for discharge his airway opening and size of tonsils significantly improved he was discharged on steroids and to continue his Abx course for potential secondary bacterial infection Total Time Spent: Greater than 30 minutes This includes examination of the patient, discharge planning, medication reconciliation, and communication with other providers. Discharge Instructions Please refer to the electronic Patient Visit Report (Discharge Instructions) for additional information.
== END 2016-07-18 09:42 | disposition home or self-care (01) | DRG 866 ==
LOC: ENRESERVDT → ENRESERVTM → C.EDB 04:15 → C.2E 07:39 → C.MED 07-16 11:37
PROVIDERS: ADMIT Hospitalist; ATTEND Internal Medicine
DX: B27.00 Gammaherpesviral mononucleosis without complication (principal); J03.90 Acute tonsillitis, unspecified; E86.0 Dehydration; F31.9 Bipolar disorder, unspecified; Z84.89 Family history of other specified conditions; Z79.899 Other long term (current) drug therapy

== ENCOUNTER 2016-07-18 21:34 | Emergency (ER) | payer BC ==
[~2016-07-18] VITALS: Ht 175.3 cm; Wt 64.8 kg
[~2016-07-18 21:34] MED LIST changes: +AFRIN; +CEFD250S3 PO; +SALI0.6510
[2016-07-18 21:40] VITALS: TEMP 36.5; Ht 175.3 cm; Wt 64.8 kg
[2016-07-18 22:44] VITALS: BP 114/61; PULSE 75; O2SAT 95
--- NOTE | 2016-07-19 00:14 | EMERGENCY ROOM VISIT NOTE ---
History Report prepared by Gregoria: Gloria Interiano Under the Supervision of: Dr. Henok Perkins M.D. First contact with patient: 22:03 Chief Complaint: ALLERGIC REACTION Stated Complaint: MONO- ALLERGIC REACTION TO MEDS History of Present Illness The patient is a 21 year old male who presents to the Emergency Room with complaints of a possible allergic reaction. He is currently being treated for mono and tonsillitis with Cefdinir. He got the Cefdinir from [facility], but it was given in powder form. The patient did not know the medication was supposed to be a liquid, and he took about a teaspoon of the powder. This evening, he woke up from a nap with a rash over his arms and chest. He denies the rash being painful or pruritic. He denies any tongue or lip swelling or shortness of breath. He has been eating and drinking normally. He denies any abdominal pain. He denies any sinus congestion or facial pain. He has not had fevers recently. Source of History: patient Onset: this evening Position: chest, arm Symptom Intensity: moderate Quality: other (rash) Timing: other (persistent) Associated Symptoms: No SOB, No abdominal pain Review of Systems See HPI for pertinent positives & negatives. A total of 10 systems reviewed and were otherwise negative. Past Medical & Surgical Medical Problems: (1) Acute infective tonsillitis (2) Bipolar disorder Family History Hypertension Social History Smoking Status: Never Smoker Alcohol Use: occasionally Drug Use: none Marital Status: single Housing Status: lives with roommate Occupation Status: [employer] student Current/Historical Medications Scheduled Cefdinir (Omnicef), 5 ML PO BID Ibuprofen (Advil), 200-600 MG PO Q4H [place] Carbonate Ext Rel (Lithobid Ext Rel), 450 MG PO BID Prednisone (Prednisone), 20 MG PO DIRECTED Scheduled PRN Oxymetazoline HCl (Afrin Nasal [place]), 1 SPRAYS NA BID PRN for Congestion Pseudoephedrine (Sudafed), 30 MG PO Q6 PRN for Nasal Congestion Saline ([place] Nasal [place]), 2 SPRAYS NA QID PRN for DRYNESS Allergies Coded Allergies: Penicillins (Verified Allergy, Intermediate, FAMILY HX, PT NEVER HAD, 07/18) Sulfa Antibiotics (Verified Allergy, Unknown, HIVES, 07/18/16) Physical Exam Vital Signs Date Time Temp Pulse Resp B/P Pulse Ox O2 Delivery O2 Flow Rate FiO2 07/18/16 22:44 75 18 114/61 95 07/18/16 21:40 36.5 78 20 120/81 96 Room Air Physical Exam Constitutional: Vital signs reviewed. Eyes: Pupils are equal round reactive to light. Conjunctiva are noninjected. ENT: Pharynx is erythematous with bilateral or exudate. No swelling to the tongue or uvula. Mucous membranes are moist. Neck supple without meningeal signs. Respiratory: Clear to auscultation bilaterally. Breath sounds are equal bilaterally. No stridor or wheezing. Cardiovascular: Regular rate and rhythm. No rubs or gallops. GI: Soft, nondistended and nontender. Bowel sounds are present. Musculoskeletal: No peripheral edema. Integumentary: Diffuse reticular rash to the trunk and extremities. No urticaria. No petechiae or purpura. The rash is easily blanchable. Neurological: The patient is awake and alert. No focal deficits. Psychiatric: Normal affect. Medical Decision & Procedures ED Course 2217: The patient was evaluated in room B5. A complete history and physical exam was performed. 2225: I reevaluated the patient. He is feeling much better. I discussed his results and discharge instructions and she verbalized complete understanding and agreement. Medical Decision This is a 21-year-old male who presents with a rash. Differential diagnosis includes drug eruption, allergic reaction, viral exanthem. I did perform a limited focused review of portions of the patient's old chart on the electronic medical record. The patient was seen here on July 13, 2016, and admitted to the hospital for exudative tonsillitis. He was diagnosed with Mononucleosis secondary to EDV and discharged on Omnicef. Group A beta strep was negative. Antibiotics were given for possible sinusitis. I did evaluate the patient as noted above. The patient is presenting with a nonpruritic rash. He was placed on Omnicef for possible bacterial sinusitis but the patient denies having any sinus symptoms. I therefore felt it was okay to take him off the antibiotics and not replace it with another woman. He does have infectious mononucleosis. The symptoms do not appear to be due to an allergic reaction. He has no urticaria. This seems likely to be a drug eruption from the excessive amount of Omnicef he took. He was told to discontinue this medication. It is unclear why the pharmacy did not reconstitute this medication. He was advised to follow up with his doctor to further clarify whether or not he is allergic to cephalosporins. He did drive here and so was recommended to try Benadryl at home to see if that helps with his rash. He was discharged in good condition. Impression Primary Impression: Drug eruption Scribe Attestation The scribe's documentation has been prepared under my direct and personally reviewed by me in its entirety. I confirm that the note above accurately reflects all work, treatment, procedures, and medical decision making performed by me. Departure Information Dispostion Home / Self-Care Referrals [facility] (PCP) Patient Instructions [facility] Additional Instructions You have been examined and treated today on an emergency basis only. This is not a substitute for, or an effort to provide, complete comprehensive medical care. It is impossible to recognize and treat all injuries or illnesses in a single emergency department visit. It is therefore important that you follow up closely with your physician. Call as soon as possible for an appointment. Return for worsening symptoms or if you develop difficulty breathing, swelling to your throat or tongue, or any other concerning symptoms. You may be allergic to a drug class called cephalosporins, although this is unclear. Your rash may just be a drug eruption and not a true allergy. Talk to your doctor further about this.
== END 2016-07-18 22:45 | disposition home or self-care (01) ==
LOC: C.EDB 21:36
DX: L27.0 Generalized skin eruption due to drugs and medicaments taken internally (principal); T36.1X5A Adverse effect of cephalosporins and other beta-lactam antibiotics, initial encounter; B27.90 Infectious mononucleosis, unspecified without complication; J03.90 Acute tonsillitis, unspecified; F31.9 Bipolar disorder, unspecified

== ENCOUNTER 2016-09-16 07:19 | Emergency (ER) | payer BC ==
[~2016-09-16] VITALS: Ht 175.3 cm; Wt 71.5 kg
[~2016-09-16 07:19] MED LIST changes: -CEFD250S3 PO; -CLC/300 PO; -LACT1CAP3 PO
[2016-09-16 07:24] VITALS: TEMP 37; Ht 175.3 cm; Wt 71.5 kg
[2016-09-16] MEDS ORDERED: SODIUM CHLORIDE 0.9% 1000ML 1,000 ML IV STA (07:33)
[2016-09-16] MEDS ORDERED: ONDANSETRON INJ 2 MG/ML 2 ML VIAL IV STA (07:33)
--- NOTE | 2016-09-16 07:41 | EMERGENCY ROOM VISIT NOTE ---
History Report prepared by Malikiblety: Ren Cm Under the Supervision of: Dr. Solo Hazel M.D. First contact with patient: 07:29 Chief Complaint: VOMITING Stated Complaint: BLOOD IN VOMIT Nursing Triage Summary: vomitied 6 times after eating wings and drinking beer last night. the first 2 times I vomited there was a small amount of what appeared to be blood in it. History of Present Illness The patient is a 21 year old male who presents to the Emergency Room with complaints of an instance of hematemesis that occurred at approximately 40 minutes CORPORATE CONCIERGE. The patient was feeling nauseous when he woke up prior to vomiting. There was just a small amount of blood mixed in the vomit. The patient also complains of a headache. He denies abdominal pain. The patient was drinking alcohol and eating wings last night. He denies smoking marijuana. He notes that he was in [facility] for spring just over one week ago. Source of History: patient Onset: 40 minutes CORPORATE CONCIERGE Position: other (GI) Symptom Intensity: small amount mixed in vomit Quality: other (hematemesis) Timing: other (one instance) Associated Symptoms: + headache, + nausea, No abdominal pain Review of Systems See HPI for pertinent positives & negatives. A total of 10 systems reviewed and were otherwise negative. Past Medical & Surgical Medical Problems: (1) Acute infective tonsillitis (2) Bipolar disorder Family History Hypertension Social History Smoking Status: Never Smoker Alcohol Use: occasionally Drug Use: none Marital Status: single Housing Status: lives with roommate Occupation Status: [employer] student Current/Historical Medications Scheduled [place] Carbonate Ext Rel (Lithobid Ext Rel), 900 MG PO QAM Ondasetron Odt (Zofran Odt), 4 MG SL Q6H Pantoprazole (Protonix), 1 TAB PO DAILY Allergies Coded Allergies: Penicillins (Verified Allergy, Intermediate, FAMILY HX, PT NEVER HAD, 09/16) Sulfa Antibiotics (Verified Allergy, Unknown, HIVES, 09/16/16) Physical Exam Vital Signs Date Time Temp Pulse Resp B/P Pulse Ox O2 Delivery O2 Flow Rate FiO2 09/16/16 11:10 79 16 109/62 98 Room Air 09/16/16 11:10 79 16 109/62 98 09/16/16 09:23 79 16 113/73 97 Room Air 09/16/16 07:49 70 09/16/16 07:24 37.0 76 18 138/94 98 Room Air Physical Exam GENERAL: Patient is a healthy-appearing well-nourished HEAD: Normocephalic atraumatic EYES: Ocular movements intact pupils equal and react to light OROPHARYNX mucous membranes are moist no exudates present no erythema or edema present NECK: Supple no nuchal rigidity CHEST: Good equal expansion LUNGS: Clear and equal to auscultation CARDIAC: Normal S1 and S2 ABDOMEN: Soft nontender no guarding BACK: No CVA tenderness EXTREMITIES: No pain upon palpation normal muscle strength in all groups no clubbing cyanosis or edema NEURO: Patient is following commands is answering questions appropriately. Alert and oriented x3 Cranial Nerves 2-12 grossly intact Medical Decision & Procedures ER Provider Diagnostic Interpretation: X-ray results as stated below per interpretation by me and the radiologist: CHEST AND ABDOMEN 2 VIEWS HISTORY: Pt c/o gastritis. Vomiting. COMPARISON: Chest 07/13/2016. FINDINGS: The lungs are clear. The cardiomediastinal silhouette is within normal limits. There is no pneumoperitoneum or pneumatosis. The bowel gas pattern is unremarkable. No evidence for bowel obstruction. No pathologic calcifications. IMPRESSION: No acute cardiopulmonary process. No evidence for bowel obstruction. Electronically signed by: Nadir Lu M.D. 09/16/2016 8:48 AM Dictated Date/Time: 09/16/2016 8:46 AM Laboratory Results 09/16/16 07:43 Red Blood Count 4.43, Mean Corpuscular Volume 87.6, Mean Corpuscular Hemoglobin 30.5, Mean Corpuscular Hemoglobin Concent 34.8, Mean Platelet Volume 10.4, Neutrophils (%) (Auto) 36.2, Lymphocytes (%) (Auto) 49.2, Monocytes (%) (Auto) 9.8, Eosinophils (%) (Auto) 4.2, Basophils (%) (Auto) 0.4, Neutrophils # (Auto) 1.87, Lymphocytes # (Auto) 2.55, Monocytes # (Auto) 0.51, Eosinophils # (Auto) 0.22, Basophils # (Auto) 0.02 09/16/16 07:43 Test 09/16/16 07:35 09/16/16 07:43 Urine Color YELLOW Urine Appearance CLEAR (CLEAR) Urine pH 6.0 (4.5-7.5) Urine Specific [place] 1.025 (1.000-1.030) Urine Protein NEG (NEG) Urine Glucose (UA) NEG (NEG) Urine Ketones NEG (NEG) Urine Occult Blood NEG (NEG) Urine Nitrite NEG (NEG) Urine Bilirubin NEG (NEG) Urine Urobilinogen NEG (NEG) Urine Leukocyte Esterase NEG (NEG) Urine Opiates Screen NEG (NEG) Urine Methadone, Qualitative NEG (NEG) Urine Barbiturates NEG (NEG) Urine Phencyclidine (PCP) Level NEG (NEG) Ur Amphetamine/Methamphetamine NEG (NEG) MDMA (Ecstasy) Screen NEG (NEG) Urine Benzodiazepines Screen NEG (NEG) Urine Cocaine Metabolite NEG (NEG) Urine Marijuana (THC) NEG (NEG) White Blood Count 5.18 K/uL (4.8-10.8) Red Blood Count 4.43 M/uL (4.7-6.1) Hemoglobin 13.5 g/dL (14.0-18.0) Hematocrit 38.8 % (42-52) Mean Corpuscular Volume 87.6 fL (80-100) Mean Corpuscular Hemoglobin 30.5 pg (25-34) Mean Corpuscular Hemoglobin Concent 34.8 g/dl (32-36) Platelet Count 269 K/uL (130-400) Mean Platelet Volume 10.4 fL (7.4-10.4) Neutrophils (%) (Auto) 36.2 % Lymphocytes (%) (Auto) 49.2 % Monocytes (%) (Auto) 9.8 % Eosinophils (%) (Auto) 4.2 % Basophils (%) (Auto) 0.4 % Neutrophils # (Auto) 1.87 K/uL (1.4-6.5) Lymphocytes # (Auto) 2.55 K/uL (1.2-3.4) Monocytes # (Auto) 0.51 K/uL (0.11-0.59) Eosinophils # (Auto) 0.22 K/uL (0-0.5) Basophils # (Auto) 0.02 K/uL (0-0.2) RDW Standard Deviation 44.1 fL (36.4-46.3) RDW Coefficient of Variation 13.8 % (11.5-14.5) Immature Granulocyte % (Auto) 0.2 % Immature Granulocyte # (Auto) 0.01 K/uL (0.00-0.02) Anion Gap 10.0 mmol/L (3-11) Est Creatinine Clear Calc Drug Dose 140.2 ml/min Estimated GFR () 144.5 Estimated GFR (Non- 124.6 BUN/Creatinine Ratio 20.9 (10-20) Calcium Level 8.8 mg/dl (8.5-10.1) Total Bilirubin 0.7 mg/dl (0.2-1) Direct Bilirubin 0.1 mg/dl (0-0.2) Aspartate Amino Transf (AST/SGOT) 16 U/L (15-37) Alanine Aminotransferase (ALT/SGPT) 26 U/L (12-78) Alkaline Phosphatase 54 U/L (45-117) Total Protein 7.5 gm/dl (6.4-8.2) Albumin 3.9 gm/dl (3.4-5.0) Lipase 99 U/L (73-393) Labs reviewed by ED physician. Medications Administered Medications (Trade) Dose Ordered Sig/Marielle Route Start Time Stop Time Status Last Admin Dose Admin Sodium Chloride (Nss 1000ml) 1,000 ml @ 999 mls/hr Q1H1M STAT IV 09/16/16 07:33 09/16/16 08:33 DC 09/16/16 07:47 999 MLS/HR Ondansetron HCl (Zofran Inj) 4 mg NOW STAT IV 09/16/16 07:33 09/16/16 07:36 DC 09/16/16 07:50 4 MG Pantoprazole Sodium (Protonix Tab) 40 mg NOW STAT PO 09/16/16 08:08 09/16/16 08:10 DC 09/16/16 08:27 40 MG Sucralfate (Carafate Tab) 1 gm NOW STAT PO 09/16/16 08:08 09/16/16 08:10 DC 09/16/16 08:27 1 GM Al Hydroxide/Mg Hydroxide (Maalox Susp) 30 ml STK-MED ONCE .ROUTE 09/16/16 08:20 09/16/16 08:23 DC 09/16/16 08:27 30 ML Lidocaine HCl 20 ml 20 ml STK-MED ONCE .ROUTE 09/16/16 08:20 09/16/16 08:23 DC 09/16/16 08:27 20 ML Promethazine HCl/ Sodium Chloride (Phenergan Inj/ Nss 50ml) 51 ml @ 204 mls/hr NOW STAT IV 09/16/16 09:24 09/16/16 09:38 DC 09/16/16 09:39 204 MLS/HR ED Course 0730: Past medical records reviewed. The patient was evaluated in room A10. A complete history and physical examination was performed. 0733: Zofran 4 mg IV, NSS 1000 ml @ 999 mls/hr. 0808: Carafate 1 gm PO, GI Cocktail 24 ml PO, Protonix 40 mg PO. 0924: Promethazine HCl 25 mg / NSS 51 ml @ 204 mls/hr. 1100: Reassessed the patient. Discussed the findings with him. He verbalized understanding and agreement of the treatment plan. The patient is ready for discharge. Medical Decision Differential diagnosis: Etiologies such as diverticulosis, AVM, coagulopathy, malignancy, Denae-Shah tear, esophagitis, peptic ulcer disease, variceal bleed, gastritis, epistaxis, as well as others were entertained. This is a 21-year-old male who presents emergency department complaining of epigastric pain and vomiting. Serial abdominal examinations were performed of the patient in the emergency department and no tended the patient exhibited a surgical abdomen he has a normal CBC and his hemoglobin is stable. He is not having outright evidence of gross vomiting. Patient was given Zofran as well as Phenergan in the emergency department along with normal saline bolus. Repeat examination revealed much improvement the patient's symptoms. The patient was given a GI cocktail started on protonic's. I recommended he continue Protonix along with a clear liquid diet for the next 48 hours. I also recommended that the patient stop with Alcohol intake along with chicken wings until follow-up with gastroenterology. Patient was in agreement with the treatment plan. Impression Primary Impression: Acute gastritis Scribe Attestation The scribe's documentation has been prepared under my direction and personally reviewed by me in its entirety. I confirm that the note above accurately reflects all work, treatment, procedures, and medical decision making performed by me. Departure Information Dispostion Home / Self-Care Prescriptions Ondasetron Odt (ZOFRAN ODT) 4 Mg Tab 4 MG SL Q6H for Nausea, #6 TAB Prov: Solo Hazel MD 09/16/16 Pantoprazole (PROTONIX) 40 Mg Tab 1 TAB PO DAILY for 30 Days, #30 TAB Prov: Solo Hazel MD 09/16/16 Referrals No Doctor, Assigned (PCP) Forms HOME CARE DOCUMENTATION FORM, IMPORTANT VISIT INFORMATION, School Instructions, Work Instructions Patient Instructions ED Gastritis, Gastritis Tx, My [facility] Additional Instructions Clear liquid diet next 48 hours Take 5 ml Maalox before every meal and at bedtime Avoid alcohol/wings until follow up Follow up with DR Bobby's office You have been examined and treated today on an emergency basis only. This is not a substitute for, or an effort to provide, complete comprehensive medical care. It is impossible to recognize and treat all injuries or illnesses in a single emergency department visit. It is therefore important that you follow up closely with [facility]. Call as soon as possible for an appointment. Thank you for your time and consideration. I look forward to speaking with you again soon. Please don't hesitate to call us if you have any questions. Problem Qualifiers Primary Impression: Acute gastritis Gastritis type: other gastritis Gastritis bleeding: with bleeding Qualified Codes: K29.01 - Acute gastritis with bleeding
[2016-09-16] MEDS ORDERED: GI COCKTAIL PO STA (08:08)
[2016-09-16] MEDS ORDERED: SUCRALFATE 1 GM TAB PO STA (08:08)
[2016-09-16] MEDS ORDERED: PANTOprazole SOD 40 MG TAB PO STA (08:08)
[2016-09-16 08:10] LABS: BASO % 0.4 %; BASO ABS # 0.02 K/uL (0-0.2); COMPLETE YES; EOS % 4.2 %; HEMATOCRIT 38.8 % (42-52); IG% 0.2 %; LYMPH % 49.2 %; LYMPH ABS # 2.55 K/uL (1.2-3.4); MEAN CELL VOLUME 87.6 fL (80-100); MEAN CORPUSCULAR HEMOGLOBIN 30.5 pg (25-34); MEAN CORPUSCULAR HGB CONC 34.8 g/dl (32-36); MEAN PLATELET VOLUME 10.4 fL (7.4-10.4); MONO % 9.8 %; NEUT % 36.2 %; PLATELET COUNT 269 K/uL (130-400); RED BLOOD COUNT 4.43 M/uL (4.7-6.1); WHITE BLOOD COUNT 5.18 K/uL (4.8-10.8)
[2016-09-16 08:20] LABS: MANUAL MICROSCOPIC REQUIRED? NO; URINE APPEARANCE CLEAR (CLEAR); URINE BILIRUBIN NEG (NEG); URINE COLOR YELLOW; URINE NITRITE NEG (NEG); URINE SPECIFIC GRAVITY 1.025 (1.000-1.030); UROBILINOGEN NEG (NEG)
[2016-09-16] MEDS ORDERED: LIDOCAINE HCL 2% VISC SOLN 20 ML UDC ONE (08:20)
[2016-09-16] MEDS ORDERED: ALUMINUM/MAGNESIUM SUSP 30 ML UDC ONE (08:20)
[2016-09-16 08:29] LABS: BUN/CREATININE RATIO 20.9 (10-20); CALCIUM 8.8 mg/dl (8.5-10.1); CREATININE 0.82 mg/dl (0.60-1.40); POTASSIUM 3.4 mmol/L (3.5-5.1)
[2016-09-16 08:29] LABS: REVIEW REQ? NO
[2016-09-16 08:40] LABS: BENZODIAZEPINE, URINE NEG (NEG); COCAINE,URINE NEG (NEG); PHENCYCLIDINE, URINE NEG (NEG)
--- NOTE | 2016-09-16 08:49 | DIAGNOSTIC IMAGING REPORT ---
CHEST AND ABDOMEN 2 VIEWS HISTORY: Pt c/o gastritis. Vomiting. COMPARISON: Chest 07/13/2016. FINDINGS: The lungs are clear. The cardiomediastinal silhouette is within normal limits. There is no pneumoperitoneum or pneumatosis. The bowel gas pattern is unremarkable. No evidence for bowel obstruction. No pathologic calcifications. IMPRESSION: No acute cardiopulmonary process. No evidence for bowel obstruction. Electronically signed by: Nadir Lu M.D. 09/16/2016 8:48 AM Dictated Date/Time: 09/16/2016 8:46 AM
[2016-09-16] MEDS ORDERED: PROMETHAZINE HCL INJ 25 MG in SODIUM CHLORIDE 0.9% 50ML 50 ML IV STA (09:24)
[2016-09-16] MEDS ORDERED: ONDA4TAB10 SL (10:55)
[2016-09-16] MEDS ORDERED: PANT1TAB48 PO (10:55)
[2016-09-16 11:10] VITALS: BP 109/62; PULSE 79; O2SAT 98
== END 2016-09-16 11:12 | disposition home or self-care (01) ==
LOC: C.EDB 07:20 → C.EDA 11:12
DX: K29.00 Acute gastritis without bleeding (principal); Z82.49 Family history of ischemic heart disease and other diseases of the circulatory system